=== PATIENT | male | born 1980 | race Caucasian/White ===

== ENCOUNTER → 2020-09-13 09:59 | Outpatient (REF) | payer OTHER, SELFPAY ==
--- NOTE | 2020-09-13 10:00 | CA_ITS ---
Transthoracic Echocardiogram Amended Patient (Last, First, Middle): Dipak Munoz, Gender: Male Date of : 1980 Age: 40 Procedure Date: 09/13/2020 Procedure Type: Transthoracic Echocardiogram Location: OP Height: 182.88 cm Weight: 117.94 kg BSA: 2.38 m2 Heart Rate: bpm BP: 100 / 62 mmHg Abnormal Psychology Teacher: Referring MD: Marciano Flannery MD Instrument Setter: Sreedhar Bustamante MD Symptoms: R94.31 ABNORMAL EKG Study Quality: Fair ECG Rhythm: Sinus Conclusions: - 1. Normal LV systolic and diastolic function 2. Normal cardiac valvular Doppler 3. No pericardial effusion Findings Left Ventricle Normal left ventricular size, thickness, and systolic function. The visually estimated ejection fraction is between 60-65%. Diastolic function is normal for age. Right Ventricle Normal right ventricular cavity size and systolic function. Atria Both atria are normal in size. There is lipomatous hypertrophy of the interatrial septum. There is no evidence of interatrial shunt. Aortic Valve Normal aortic valve structure and function. There is no aortic valve stenosis. There is no aortic valve regurgitation. Mitral Valve Normal mitral valve structure and function. There is trace mitral valve regurgitation. There is no mitral valve stenosis. Pulmonic Valve The pulmonic valve was not well visualized. Tricuspid Valve Likely normal tricuspid valve structure and function. Tricuspid regurgitation envelope is inadequate for calculation of right ventricular systolic pressure. Normal right atrial pressure. Great Vessels All visible segments of the aorta are normal in size. The pulmonary artery was not well visualized. Venous The inferior vena cava is normal in size and collapses greater than 50% with inspiration. Pericardium/Pleural There is no evidence of pericardial effusion. Prior Study Comparison No prior study available for comparison. Measurements 2D Linear Measurements RVIDd: 2.75 RVIDd Index: 1.16 IVSd: 1.01 0.6-0.9/0.6-1.0 cm LVIDd: 4.25 3.9-5.3/4.2-5.9 cm LVIDd Index: 1.79 2.4-3.2/2.2-3.1 cm/m2 LVIDs: 2.64 2.0-3.6 cm LVPWd: 1.24 0.7-1.1 cm Ao Root: 3.00 2.1-3.5 cm LA Diam: 3.60 2.7-3.8/3.0-4.0 cm LAIDs Index: 1.51 1.5-2.3 cm/m2 LV Mass: 205.77 67-162/88-224 g LV Mass Index: 86.46 43-95/49-115 g/m2 LVOT Diam: 2.00 3.0+(-)1.3 cm 2D Volumes LA Vol: 16.40 2D Systolic Function EF 4C: 46.60 >55% EF 2C: 73.80 >55% EF BiP: 64.60 >55% Mitral Valve MV Pk E: 0.66 MV PK A: 0.53 MV Decel Time: 166.00 E/A: 1.20 E'Lateral: 10.00 E'Medial: 6.31 E/E' Med: 10.40 E/E' Lat: 6.60 Aortic Valve AoV Pk Raul: 1.11 AoV Mn Raul: 0.80 AoV VTI: 0.21 AoV Pk Grad: 5.00 Aov Mn Grad: 3.00 IFTIKHAR Cont.VTI: 2.76 LVOT LVOT Pk Raul: 0.96 LVOT Mn Raul: 0.66 LVOT VTI: 0.19 LVOT Pk Grad: 4.00 LVOT Mn Grad: 2.00 LVOT Diam: 2.00 LVOT Area: 3.14 Diastolic Function MV Pk E: 0.66 MV Pk A: 0.53 E/A: 1.20 E'Medial: 6.31 E/E' Med: 10.40 E' Laterial: 10.00 E/E' Lat: 6.60 Tricuspid Valve RA Press: 3.00 Great Vessels Aorta Ao Root-2D: 3.00 2.0-3.7 cm Ao Asc: 2.80 2.1-3.4 cm Ao Arch: 2.60 Updated in Other Vendor System with Status of Final Sreedhar Bustamante MD electronically signed on 05/29/2023 12:46:17 PM with status of Final
== END ==
LOC: HO.CARD 09:59
PROVIDERS: Visit Provider Internal Medicine
DX: R94.31 Abnormal electrocardiogram [ECG] [EKG] (principal)
CPT/HCPCS: 93306

== ENCOUNTER 2022-11-29 15:17 | Outpatient (REF) | payer OTHER, SELFPAY ==
[2022-11-29 15:38] LABS: MANUAL DIFF FLAG NO
[2022-11-29 18:18] LABS: Alanine Aminotransferase 102 U/L (0-40); Albumin Level 4.3 g/dL (3.5-5.0); Alkaline Phosphatase 88 U/L (39-117); Anion Gap 12 (12-20); Aspartate Amino Transferase 50 U/L (5-37); Bilirubin Total 0.8 mg/dL (0.0-1.0); Blood Urea Nitrogen 10 mg/dL (9-16); Calcium 9.4 mg/dL (8.4-10.2); Carbon Dioxide 29 mmol/L (22-29); Chloride 103 mmol/L (96-108); Cholesterol 178 mg/dL; Estimated Glomerular Filt Rate > 60; Glucose Random 105 mg/dL (60-115); Potassium 4.4 mmol/L (3.3-5.1); Sodium 140 mmol/L (135-145); Total Protein 7.5 g/dL (6.5-8.0)
[2022-11-29 18:27] LABS: Basophils Absolute Auto 0.1 X10*3/uL (0.0-0.2); Basophils Percent Auto 0.7 % (0-2); Eosinophils Absolute Auto 0.1 X10*3/uL (0.0-0.4); Eosinophils Percent Auto 1.1 % (0-4); Hematocrit 49.7 % (42.0-52.0); Imm Gran Abs Auto 0.04 X10*3/uL (0.00-0.03); Imm Gran Pct Auto 0.5 % (0.0-0.4); Lymphocytes Absolute Auto 2.4 X10*3/uL (1.2-4.9); Lymphocytes Percent Auto 26.6 % (20-40); Mean Corpuscular HGB Conc 34.2 g/dl (31.0-36.0); Mean Corpuscular Volume 87.8 fL (80.0-98.0); Mean Platelet Volume 12.6 fL (9.4-12.4); Monocytes Absolute Auto 0.9 X10*3/uL (0.1-1.2); Monocytes Percent Auto 10.4 % (2-11); Neutrophils Absolute Auto 5.4 x10*3/uL (2.0-8.3); Neutrophils Percent Auto 60.7 % (45-73); Platelet Count 206 X10*3/uL (160-400); Red Blood Count 5.66 X10*6/uL (4.60-5.80); White Blood Count 8.9 X10*3/uL (4.8-10.8)
[2022-11-29 18:35] LABS: Free T4 (Free Thyroxine) 1.17 ng/dL (0.71-1.85); Thyroid Stimulating Hormone 3.09 uIU/mL (0.32-4.0)
== END 2022-11-29 15:18 | disposition home or self-care (01) ==
LOC: HO.LAB 15:17
PROVIDERS: PCP Internal Medicine; Visit Provider Internal Medicine
DX: R63.5 Abnormal weight gain (principal); M54.9 Dorsalgia, unspecified; I12.9 Hypertensive chronic kidney disease with stage 1 through stage 4 chronic kidney disease, or unspecified chronic kidney disease; N18.9 Chronic kidney disease, unspecified
CPT/HCPCS: 36415; 80053; 82465; 84439; 84443; 85025

== ENCOUNTER → 2022-12-05 14:01 | Outpatient (REF) | payer OTHER, SELFPAY | LOC: HO.SL 14:01 | PROVIDERS: PCP Internal Medicine; Visit Provider Internal Medicine | DX: R06.83 Snoring (principal); G47.9 Sleep disorder, unspecified | CPT/HCPCS: 95806 ==

== ENCOUNTER → 2023-01-22 13:24 | Outpatient (BNVA) | payer OTHER, SELFPAY | PROVIDERS: PCP Internal Medicine; Visit Provider Physician Assistant ==

== ENCOUNTER → 2023-01-30 13:46 | Outpatient (BNVA) | payer OTHER, SELFPAY | PROVIDERS: PCP Internal Medicine; Visit Provider Physician Assistant Surgical | DX: E66.01 Morbid (severe) obesity due to excess calories (principal); Z68.41 Body mass index [BMI] 40.0-44.9, adult | CPT/HCPCS: 99202 ==

== ENCOUNTER → 2023-03-04 12:43 | Outpatient (BNVA) | payer OTHER, SELFPAY | PROVIDERS: PCP Internal Medicine; Referring Provider Internal Medicine; Visit Provider Dietitian, Registered | DX: E66.01 Morbid (severe) obesity due to excess calories (principal); Z68.38 Body mass index [BMI] 38.0-38.9, adult; Z71.3 Dietary counseling and surveillance | CPT/HCPCS: 97802 ==

== ENCOUNTER → 2023-03-27 12:42 | Outpatient (BNVA) | payer OTHER, SELFPAY | PROVIDERS: PCP Internal Medicine; Visit Provider Physician Assistant Surgical | DX: E66.9 Obesity, unspecified (principal); Z68.37 Body mass index [BMI] 37.0-37.9, adult; M54.50 Low back pain, unspecified | CPT/HCPCS: 99212 ==

== ENCOUNTER 2023-04-04 11:45 | Emergency (ER) | payer OTHER, SELFPAY ==
--- NOTE | ~2023-04-04 | XR_ITS ---
EXAMINATION: XR CHEST CLINICAL INFORMATION: Substernal chest pain. COMPARISON: None available. TECHNIQUE: 2 views of the chest were obtained. FINDINGS: No significant abnormality is noted involving the heart, lungs, mediastinum, bony thorax or soft tissues. XR/XR chest 2V IMPRESSION: Unremarkable examination.
--- NOTE | 2023-04-04 11:51 | ECG_ITS ---
Test Reason : CHEST PAIN Blood Pressure : / mmHG Vent. Rate : 087 BPM Atrial Rate : 087 BPM P-R Int : 174 ms QRS Dur : 084 ms QT Int : 352 ms P-R-T Axes : 010 016 000 degrees QTc Int : 423 ms Normal sinus rhythm Inferior infarct , age undetermined Cannot rule out Anterior infarct , age undetermined Abnormal ECG No previous ECGs available Referred By: Generic ED Physician Electronically Signed By:KRISTEN GALLOWAY MD
[2023-04-04 11:53] VITALS: BP 126/78; PULSE 84; O2SAT 99
[2023-04-04 11:55] VITALS: BP 130/77; PULSE 87; RESP 16; TEMP 36.5; O2SAT 95; BMI 39.4
[2023-04-04 12:17] LABS: MANUAL DIFF FLAG NO
[2023-04-04 12:19] LABS: Basophils Percent Auto 0.5 % (0-2); Eosinophils Absolute Auto 0.1 X10*3/uL (0.0-0.4); Eosinophils Percent Auto 0.7 % (0-4); Hemoglobin 17.8 g/dl (14.0-18.0); Imm Gran Abs Auto 0.02 X10*3/uL (0.00-0.03); Imm Gran Pct Auto 0.2 % (0.0-0.4); Lymphocytes Absolute Auto 1.8 X10*3/uL (1.2-4.9); Lymphocytes Percent Auto 20.9 % (20-40); Mean Corpuscular HGB Conc 34.2 g/dl (31.0-36.0); Mean Corpuscular Hemoglobin 29.9 pg (27.0-33.0); Mean Corpuscular Volume 87.2 fL (80.0-98.0); Mean Platelet Volume 11.9 fL (9.4-12.4); Monocytes Absolute Auto 0.6 X10*3/uL (0.1-1.2); Monocytes Percent Auto 7.3 % (2-11); Neutrophils Absolute Auto 6.1 x10*3/uL (2.0-8.3); Neutrophils Percent Auto 70.4 % (45-73); Platelet Count 181 X10*3/uL (160-400); Red Blood Count 5.96 X10*6/uL (4.60-5.80); Red Cell Distribution Width 11.8 % (11.0-16.0); White Blood Count 8.6 X10*3/uL (4.8-10.8)
--- NOTE | 2023-04-04 12:29 | PC.NURSE ---
alert and oriented, resp even and unlabored. iv established, labs drawn and sent. pt resting comfortably on stretcher
[2023-04-04 12:47] LABS: Alanine Aminotransferase 83 U/L (0-40); Albumin Level 4.5 g/dL (3.5-5.0); Alkaline Phosphatase 92 U/L (39-117); Anion Gap 14 (12-20); Aspartate Amino Transferase 45 U/L (5-37); Bilirubin Total 1.2 mg/dL (0.0-1.0); Blood Urea Nitrogen 16 mg/dL (9-16); Calcium 10.2 mg/dL (8.4-10.2); Carbon Dioxide 26 mmol/L (22-29); Chloride 104 mmol/L (96-108); Creatinine Clr Calc Pharmacy 102.9; Estimated Glomerular Filt Rate > 60; Glucose Random 107 mg/dL (60-115); Potassium 4.3 mmol/L (3.3-5.1); Sodium 140 mmol/L (135-145); Total Protein 8.1 g/dL (6.5-8.0)
[2023-04-04 12:54] LABS: Troponin-I High Sensitivity 5.7 ng/L (<3.5-35.0)
[2023-04-04 14:51] VITALS: BP 97/52; PULSE 74; RESP 20; TEMP 36.4; O2SAT 95
--- NOTE | 2023-04-04 15:54 | ED.CHESTPAIN ---
HPI - Chest Pain General Chief Complaint: Chest Pain Stated Complaint: cp,dizzy per ems Time Seen by Provider: 04/04/23 14:03 Source: patient Mode of arrival: EMS Limitations: no limitations History of Present Illness HPI narrative: 43-year-old male with history of obesity, hypertension presents with chest pain. Chest pain was substernal. It did not radiate. Was associated with some mild nausea but no shortness of breath. Symptoms occurred at rest. They are not exacerbated by exertion. There were improved with oxygen by EMS. Patient describes the pain as heaviness. He has no history of cardiac abnormalities, no history his family of acute coronary . He does report father had some cardiac related issues in his 30s but was related to an extremely unhealthy lifestyle. Patient is currently asymptomatic. Related Data Home Medications Medication Instructions Recorded Confirmed ibuprofen 800 mg tablet 800 mg PO Q8H PRN 01/22/23 01/30/23 MEN ONE A DAY VITAMIN PO 01/30/23 01/30/23 Allergies Allergy/AdvReac Type Severity Reaction Status Date / Time No Known Allergies Allergy Verified 03/27/23 12:54 [No Known Allergies*] Review of Systems Review of Systems: CONSTITUTIONAL: Denies weight loss, fever and chills. HEENT: Denies changes in vision and hearing. RESPIRATORY: Denies SOB and cough. CV: Denies palpitations positive CP. GI: Denies abdominal pain, positive nausea, no vomiting and diarrhea. : Denies dysuria and urinary frequency. MSK: Denies myalgia and joint pain. SKIN: Denies rash and pruritus. NEUROLOGICAL: Denies headache and syncope. PSYCHIATRIC: Denies recent changes in mood. Denies anxiety and depression. All other ROS are negative unless in HPI PMFSH Past Medical History Surgical History History of ankle surgery Hx of removal of cyst Hx of wisdom tooth extraction Family History Family History Mother No problems noted. Father Heart disease Social History Social History Household Members: Spouse, Family and Children Alcohol intake: current Alcohol intake frequency: holidays/special occasions only Patient Tobacco Use Status: Never used Tobacco Substance Use Type: Marijuana Advance Directives: No Advance Directives Information Provided: Yes Physical Exam Vital Signs: Vital Signs: Last Vital Signs Temp 97.6 F 04/04/23 14:51 Pulse 74 04/04/23 14:51 Resp 20 04/04/23 14:51 BP 97/52 L 04/04/23 14:51 Pulse Ox 95 04/04/23 14:51 O2 Del Method Room Air 04/04/23 14:51 BMI result Body Mass Index 39.4 GEN: Well developed, no acute distress, alert, oriented HEENT: Normocephalic, atraumatic, normal external ears, nose appears normal, no oropharyngeal edema or exudates Eyes: Normal to appearance Neck: Supple, no lymphadenopathy Respiratory: Talks in complete sentences, no respiratory distress, clear to auscultation bilaterally Cardiovascular: Regular rate and rhythm, no murmurs rubs or gallops Abdomen: Soft, nontender, nondistended, no guarding, no rebound Back: No CVA tenderness Extremities: No clubbing cyanosis or edema Neurologic: No focal neurologic deficits, cranial nerves 2-12 intact, strength is 5/5 bilaterally Skin: No rash Course Course Course Narrative: 43-year-old male with history of obesity and hypertension presents with chest pain. The chest pain occurred at rest which is atypical. The did described as heaviness and substernal. Did not radiate. Was associated with nausea. Improved with oxygen administration examination is unremarkable. EKG did reveal some abnormalities including an T-wave inversion and a Q-wave in lead 3 and a Q-wave in AVF. This could certainly be due to body habitus in lead placement. There are no acute ST elevations or depressions. Patient's initial set of cardiac enzymes are negative. Will repeat a troponin. Given the atypical story of chest pain, no acute ST elevations or depressions, patient would likely be safely discharged with follow-up as an outpatient to Cardiology given the EKG abnormalities. Heart score was deemed low risk Reevaluation(s) Reevaluation #1: 2nd set of cardiac enzymes is negative. Patient can be safely discharged. All discharge instructions were discussed. All abnormalities were discussed. Time: 16:24 Medical Decision Making Medical Decision Making MDM Narrative: Patient presents with chest pain. Symptoms are suggestive of a noncardiac etiology. His history is without high risk features including the nonexertional component. It was not relieved with rest. His CAD risk factors include hypertension. His exam is without evidence of acute fluid overload. EKG does show some abnormalities but no acute active ischemia. His heart score was low risk. We will send 2 sets of cardiac enzymes given the timing. His cardiac enzymes are negative, patient can likely be discharged with outpatient follow-up given the abnormal EKG. His presentation is not consistent with acute pulmonary embolus, PERC score is negative, pneumothorax, thoracic aortic dissection, cardiac effusion or tamponade. Will also order an EKG, chest x-ray. There is no indication for aspirin. He is currently pain-free and does not require additional pain management Differential Diagnosis Differential Diagnoses: The differential diagnosis associated with the presentation includes (See above) Admission/Observation Consideration of admission/observation: Escalation of care including admission/observation considered Lab Data MDM Lab Attestation statement: I reviewed the patient's lab results. 04/04/23 12:13 04/04/23 12:13 Labs: Lab Results 04/04/23 04/04/23 04/04/23 Range/Units 12:13 12:13 12:13 WBC 8.6 (4.8-10.8) X10*3/uL RBC 5.96 H (4.60-5.80) X10*6/uL Hgb 17.8 (14.0-18.0) g/dl Hct 52.0 (42.0-52.0) % MCV 87.2 (80.0-98.0) fL MCH 29.9 (27.0-33.0) pg MCHC 34.2 (31.0-36.0) g/dl RDW 11.8 (11.0-16.0) % Plt Count 181 (160-400) X10*3/uL MPV 11.9 (9.4-12.4) fL Immature Gran % (Auto) 0.2 (0.0-0.4) % Neut % (Auto) 70.4 (45-73) % Lymph % (Auto) 20.9 (20-40) % [place] % (Auto) 7.3 (2-11) % Eos % (Auto) 0.7 (0-4) % Baso % (Auto) 0.5 (0-2) % Lymph # (Auto) 1.8 (1.2-4.9) X10*3/uL [place] # (Auto) 0.6 (0.1-1.2) X10*3/uL Eos # (Auto) 0.1 (0.0-0.4) X10*3/uL Baso # (Auto) 0.0 (0.0-0.2) X10*3/uL Abs Immat Gran (auto) 0.02 (0.00-0.03) X10*3/uL Absolute Neuts (auto) 6.1 (2.0-8.3) x10*3/uL Absolute Nucleated RBC 0.000 (0.0-0.012) X10*3/uL Nucleated RBC % (auto) 0.0 (0.0-0.2) /100WBC Sodium 140 (135-145) mmol/L Potassium 4.3 (3.3-5.1) mmol/L Chloride 104 (96-108) mmol/L Carbon Dioxide 26 (22-29) mmol/L Anion Gap 14 (12-20) BUN 16 (9-16) mg/dL Creatinine 1.20 (0.5-1.4) mg/dL Estim Creat Clear Calc 102.9 Estimated GFR > 60 Random Glucose 107 (60-115) mg/dL Calcium 10.2 D (8.4-10.2) mg/dL Total Bilirubin 1.2 H (0.0-1.0) mg/dL AST 45 H (5-37) U/L ALT 83 H (0-40) U/L Alkaline Phosphatase 92 (39-117) U/L Troponin I High Sens 5.7 (<3.5-35.0) ng/L Total Protein 8.1 H (6.5-8.0) g/dL Albumin 4.5 (3.5-5.0) g/dL 04/04/23 Range/Units 15:37 WBC (4.8-10.8) X10*3/uL RBC (4.60-5.80) X10*6/uL Hgb (14.0-18.0) g/dl Hct (42.0-52.0) % MCV (80.0-98.0) fL MCH (27.0-33.0) pg MCHC (31.0-36.0) g/dl RDW (11.0-16.0) % Plt Count (160-400) X10*3/uL MPV (9.4-12.4) fL Immature Gran % (Auto) (0.0-0.4) % Neut % (Auto) (45-73) % Lymph % (Auto) (20-40) % [place] % (Auto) (2-11) % Eos % (Auto) (0-4) % Baso % (Auto) (0-2) % Lymph # (Auto) (1.2-4.9) X10*3/uL [place] # (Auto) (0.1-1.2) X10*3/uL Eos # (Auto) (0.0-0.4) X10*3/uL Baso # (Auto) (0.0-0.2) X10*3/uL Abs Immat Gran (auto) (0.00-0.03) X10*3/uL Absolute Neuts (auto) (2.0-8.3) x10*3/uL Absolute Nucleated RBC (0.0-0.012) X10*3/uL Nucleated RBC % (auto) (0.0-0.2) /100WBC Sodium (135-145) mmol/L Potassium (3.3-5.1) mmol/L Chloride (96-108) mmol/L Carbon Dioxide (22-29) mmol/L Anion Gap (12-20) BUN (9-16) mg/dL Creatinine (0.5-1.4) mg/dL Estim Creat Clear Calc Estimated GFR Random Glucose (60-115) mg/dL Calcium (8.4-10.2) mg/dL Total Bilirubin (0.0-1.0) mg/dL AST (5-37) U/L ALT (0-40) U/L Alkaline Phosphatase (39-117) U/L Troponin I High Sens < 2.7 D (<3.5-35.0) ng/L Total Protein (6.5-8.0) g/dL Albumin (3.5-5.0) g/dL Independent Interpretation I performed an independent interpretation of an: EKG (Normal sinus rhythm heart rate 87, Q-waves noted in lead 3 and AVF, no acute ST elevations or depressions, poor precordial progression, no comparison) and Plain X-Ray (Chest: No acute cardiopulmonary disease) Independent Historian Clinical information obtained from an independent historian. History obtained from or confirmed by: Spouse Tests considered The following testing was considered but not selected: CT chest Prescription Management I considered prescription management with: Pain Medication Chronic Conditions Patient?s care impacted by: Hypertension Discharge Plan Discharge Clinical Impression: Chest pain, Abnormal ECG Patient Disposition: Home, Self-Care Instructions: Chest Pain (DC) Prescriptions: No Action ibuprofen 800 mg tablet 800 mg PO Q8H PRN MEN ONE A DAY VITAMIN PO Referrals: Sreedhar Bustamante MD [Physician] -
[2023-04-04 16:14] LABS: Troponin-I High Sensitivity < 2.7 ng/L (<3.5-35.0)
== END 2023-04-04 16:32 | disposition home or self-care (01) ==
PROVIDERS: Emergency Provider Emergency Medicine; PCP Internal Medicine
DX: R07.89 Other chest pain (principal); I10 Essential (primary) hypertension; R94.31 Abnormal electrocardiogram [ECG] [EKG]; R42 Dizziness and giddiness; Z79.899 Other long term (current) drug therapy
CPT/HCPCS: 36415; 71046; 80053; 84484; 85025; 93005; 99283; 99285

== ENCOUNTER 2023-04-10 11:11 | Outpatient (REF) | payer OTHER, SELFPAY ==
--- NOTE | ~2023-04-10 | XR_ITS ---
EXAMINATION: XR LUMBOSACRAL SPINE WITH OBLIQUES CLINICAL INFORMATION: Lower back pain. COMPARISON: None available. TECHNIQUE: AP and lateral views of the lumbar spine were obtained. Lateral views were obtained in flexion, extension, and neutral positions. FINDINGS: Vertebral body heights are normal. There is a mild lumbar dextroscoliosis. At L5-S1, there is moderate disc space narrowing and a 6 mm anterolisthesis. The remaining lumbar disc spaces are well-maintained. No acute fracture or spondylolisthesis is seen. There is no significant instability with flexion or extension. The posterior elements are intact. The paravertebral soft tissues are unremarkable. XR/XR lumbar spine 4V min IMPRESSION: 1. There is a mild lumbar dextroscoliosis. 2. There is moderate degenerative disc disease at L5-S1. 3. No significant instability is seen with flexion or extension..
== END 2023-04-10 11:12 | disposition home or self-care (01) ==
LOC: HO.HOSX 11:11
PROVIDERS: PCP Internal Medicine; Visit Provider Neurological Surgery
DX: M54.50 Low back pain, unspecified (principal); M41.9 Scoliosis, unspecified
CPT/HCPCS: 72110; 99202

== ENCOUNTER 2023-04-25 13:22 | Outpatient (REF) | payer OTHER, SELFPAY ==
[2023-04-25 14:31] LABS: Appearance Urine Clear; Color Urine Yellow; Glucose Urine UA Negative (Negative); Leukocyte Esterase Urine Negative (Negative); Nitrite Urine Negative (Negative); PH 6.5 (5.0-9.0); Specific Gravity - Urine 1.025 (1.005-1.025); Urine Blood Negative (Negative); Urine Ketones Negative (Negative); Urine Protein Negative (Neg-Trace)
[2023-04-25 14:57] LABS: D Dimer High Sensitivity < 150 NG/ML
[2023-04-25 16:05] LABS: C Reactive Protein 0.32 mg/dL (< or = 0.50)
== END 2023-04-25 13:23 | disposition home or self-care (01) ==
LOC: HO.LAB 13:22
PROVIDERS: PCP Internal Medicine; Visit Provider Internal Medicine
DX: R06.02 Shortness of breath (principal); R79.89 Other specified abnormal findings of blood chemistry
CPT/HCPCS: 36415; 81003; 82550; 85379; 86140

== ENCOUNTER → 2023-05-01 14:37 | Outpatient (REF) | payer OTHER, SELFPAY ==
--- NOTE | 2023-05-01 14:40 | CA_ITS ---
Transthoracic Echocardiogram Amended Patient (Last, First, Middle): Dipak Munoz, Gender: Male Date of : 1980 Age: 43 Procedure Date: 05/01/2023 Procedure Type: Transthoracic Echocardiogram Location: OP Height: 180.34 cm Weight: 115.67 kg BSA: 2.34 m2 Heart Rate: 73 bpm BP: 128 / 72 mmHg Income Tax Preparer: Referring MD: Marciano Flannery MD Cloth Layer: Sreedhar Bsutamante MD Symptoms: R06.02 SOB BORDERLINE EKG Study Quality: Adequate/Contrast ECG Rhythm: Sinus Conclusions: - 1. Normal LV systolic function with normal filling pattern 2. Normal cardiac valvular Doppler 3. No gross pericardial effusion - (study reported by but still in preliminary status for unclear reasons. Signed by me as he is on vacation and this report has been requested for a pending surgery). Findings Procedure Information Contrast agent, definity, is being given per protocol without apparent complications. Left Ventricle Normal left ventricular size, thickness, and systolic function. The visually estimated ejection fraction is between 60-65%. Spectral Doppler is indicative of a normal filling pattern. Right Ventricle Normal right ventricular cavity size and systolic function. Atria The left atrium is normal in size. Interatrial shunt cannot be excluded. The right atrium was not well visualized. Aortic Valve The aortic valve structure and function is likely normal. There is no aortic valve stenosis. There is no aortic valve regurgitation. Mitral Valve Likely normal mitral valve structure and function. There is trace mitral valve regurgitation. There is no mitral valve stenosis. Pulmonic Valve The pulmonic valve was not well visualized. Tricuspid Valve Likely normal tricuspid valve structure and function. Tricuspid regurgitation envelope is inadequate for calculation of right ventricular systolic pressure. Great Vessels All visible segments of the aorta are normal in size. The pulmonary artery was not well visualized. Venous The inferior vena cava is normal in size and collapses greater than 50% with inspiration. Pericardium/Pleural There is no evidence of pericardial effusion. Prior Study Comparison No significant change compared to prior study dated: 09/13/2020. Measurements 2D Linear Measurements IVSd: 1.23 0.6-0.9/0.6-1.0 cm LVIDd: 4.15 3.9-5.3/4.2-5.9 cm LVIDd Index: 1.77 2.4-3.2/2.2-3.1 cm/m2 LVIDs: 2.46 2.0-3.6 cm LVPWd: 1.20 0.7-1.1 cm Ao Root: 3.00 2.1-3.5 cm LA Diam: 3.70 2.7-3.8/3.0-4.0 cm LAIDs Index: 1.58 1.5-2.3 cm/m2 LV Mass: 221.95 67-162/88-224 g LV Mass Index: 94.85 43-95/49-115 g/m2 LVOT Diam: 2.30 3.0+(-)1.3 cm 2D Volumes LA Vol: 11.90 2D Systolic Function EF 4C: 59.90 >55% EF 2C: 59.00 >55% EF BiP: 60.30 >55% Mitral Valve MV Pk E: 0.59 MV PK A: 0.51 MV Decel Time: 203.00 E/A: 1.20 E'Lateral: 12.60 E'Medial: 10.80 E/E' Med: 5.50 E/E' Lat: 4.70 PHT: 59.00 MVA PHT: 3.73 Decel Navarro: 2.93 Aortic Valve AoV Pk Raul: 1.13 AoV Mn Raul: 0.71 AoV VTI: 0.22 AoV Pk Grad: 5.00 Aov Mn Grad: 2.00 IFTIKHAR Cont.VTI: 2.98 LVOT LVOT Pk Raul: 0.81 LVOT Mn Raul: 0.54 LVOT VTI: 0.16 LVOT Pk Grad: 3.00 LVOT Mn Grad: 1.00 LVOT Diam: 2.30 LVOT Area: 4.15 Diastolic Function MV Pk E: 0.59 MV Pk A: 0.51 E/A: 1.20 E'Medial: 10.80 E/E' Med: 5.50 E' Laterial: 12.60 E/E' Lat: 4.70 Right Ventricle TAPSE (mm): 20.30 TVS' Raul: 7.94 Tricuspid Valve TR Pk Raul: 1.56 TR Pk Grad: 10.00 Great Vessels Aorta Ao Root-2D: 3.00 2.0-3.7 cm Ao Asc: 3.00 2.1-3.4 cm Pulmonary Valve PV Pk Raul: 1.01 Peak PV Grad: 4.00 Updated in Other Vendor System with Status of Final Sreedhar Bustamante MD electronically signed on 09/03/2023 10:07:55 AM with status of Final
== END ==
LOC: HO.CARD 14:37
PROVIDERS: PCP Internal Medicine; Visit Provider Internal Medicine
DX: R06.02 Shortness of breath (principal)
CPT/HCPCS: 93306; Q9957

== ENCOUNTER 2023-05-02 19:44 | Outpatient (REF) | payer OTHER, SELFPAY | END 2023-05-02 19:45 | disposition home or self-care (01) | LOC: HO.MRI 19:44 | PROVIDERS: PCP Internal Medicine; Visit Provider Neurological Surgery | DX: M41.9 Scoliosis, unspecified (principal); M54.50 Low back pain, unspecified | CPT/HCPCS: 72148 ==

== ENCOUNTER 2023-05-13 11:38 | Outpatient (AMB) | payer OTHER, SELFPAY ==
--- NOTE | 2023-05-13 11:49 | MHC.OFFVISWM ---
Intake VS Expanded 05/13/23 11:54 Height 5 ft 10 in Weight 253 lb BMI 36.3 BP 128/81 Blood Pressure Location Rt brachial Blood Pressure Position Sitting Pulse 74 Pulse Source Pulse Oximeter Temp 97.2 F Temperature Source Temporal Artery Scan Pulse Oximetry 98 Oxygen Delivery Method Room Air Body Fat 85.4 Body Fat Percentage 33.7 Free Fat Mass 167.6 Muscle Mass 159.4 Visceral Mass 17.0 Water Mass 119.2 BMR 2,299 Intake Visit Reasons: [facility] follow up Education Department Chair Required: No Allergies No Known Allergies [No Known Allergies*] Allergy (Verified 05/13/23 11:55) Medication List - Last Reconciled 05/13/23 by MAHIN Ellis ibuprofen 800 mg PO Q8H PRN [MEN ONE A DAY VITAMIN PO] HPI HPI Comments History of Present Illness Details Returns for f/u of [facility] program Started 01/30/23-weight 285 pounds, BMI 40.89 Weight today 253 pounds, BMI 36.3 32 pound weight loss to date, 11.2 % TBWL Continues w chronic LBP with intermittent radiation to the front of the thighs bilaterally.?He feels as though he does recover quicker from a flair but it does continue. Energy, fitness, strength improved. Overall fells he is doing better. Feels as though his autism is better tolerated both socially and with the weather. Meal plan: 3 Pure protein shakes ([employer], [employer], [employer], [employer]) First shake, (1 scoop in 8 oz low fat unsweetened almond milk) at 1130am-130pm Second shake, (1/2 scoops in 8 oz low fat unsweetened almond milk) at? 230pm-430pm Dinner at 5pm (10 forks of protein and 10 forks of salad/vegetables). 1 protein bar ([employer] Perfect bars at [employer], [employer], or [employer]) at 7pm-9pm. Another shake (1/2 scoop in 8 oz unsweetened almond milk) at 10pm-12am. Exercise: yoga daily walking stationary bike at home-75-100 calories gym: weights then cardio (treadmill or bike) PFSH Surgical History History of ankle surgery Hx of removal of cyst Hx of wisdom tooth extraction Family History Mother No problems noted. Father Heart disease Social History Household Members: Spouse, Family and Children Alcohol intake: current Alcohol intake frequency: holidays/special occasions only Patient Tobacco Use Status: Never used Tobacco Substance Use Type: Marijuana Physical Exam Vital Signs: Last Vital Signs Temp 97.2 F 05/13/23 11:54 Pulse 74 05/13/23 11:54 BP 128/81 05/13/23 11:54 Pulse Ox 98 05/13/23 11:54 Oxygen Delivery Method Room Air 05/13/23 11:54 BMI result Body Mass Index 36.3 Const General: healthy appearing and no acute distress Resp Effort & Inspection: normal respiratory effort Auscultation: clear to auscultation bilaterally Cardio Rate: regular rate Rhythm: regular rhythm GI Auscultation: normal bowel sounds Extrem General: Yes normal to inspection Assessment & Plan Assessment & Plan (1) Obesity (BMI 30-39.9): Code(s): E66.9 - Obesity, unspecified Plan: Suggest decrease shakes to 1/2 scoop each. Continue exercise Discussed [employer] for access to pool. Has done very well with the program and will f/u as needed. Coding Level of Care Code Est Pt Level 3 (97190) Diagnoses Obesity (BMI 30-39.9) E66.9
[2023-05-13 11:54] VITALS: BP 128/81; PULSE 74; TEMP 36.2; O2SAT 98; BMI 36.3
== END 2023-05-13 12:23 | disposition home or self-care (01) ==
PROVIDERS: PCP Internal Medicine; Visit Provider Physician Assistant Surgical
DX: E66.9 Obesity, unspecified (principal); Z68.36 Body mass index [BMI] 36.0-36.9, adult
CPT/HCPCS: 99213

== ENCOUNTER → 2023-05-13 11:38 | Outpatient (BNVA) | payer OTHER, SELFPAY | PROVIDERS: PCP Internal Medicine; Visit Provider Physician Assistant Surgical | DX: E66.9 Obesity, unspecified (principal); Z68.36 Body mass index [BMI] 36.0-36.9, adult | CPT/HCPCS: 99212 ==

== ENCOUNTER 2023-07-16 14:46 | Outpatient (AMB) | payer OTHER, SELFPAY ==
--- NOTE | 2023-07-16 15:19 | A.SPINEOV_ITS ---
Intake Intake Visit Reasons: Discuss MRI results Intake Note: Mr. Munoz is here today to discuss the results of his MRI done @ [facility] [place]. 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 Please see Dr. Angel detailed note for the specifics of the problem. His MRI at [place] shows a very advanced degenerative disc at L5-S1. He has STIR endplate changes suggesting edema. While he has other milder degenerative changes I think that a lot of his pain could be explained by the bone on bone contact with the collapsed disc. Typically this is something Dr. Angel would offer him an L5- S1 anterior lumbar interbody fusion. We spent time at length discussing this possibility of surgery as well as risks benefits. Because of his age I did discuss the possibility of retrograde ejaculation. It is an extremely rare complication of an anterior approach and the patient understands that this is consideration of a risk, but he has done having children. I will review his imaging with Dr. Angel and get back to the patient with a final plan. Total amount of time spent in this visit was 20 minutes in discussion of symptoms, lumbar MRI imaging results and subsequent plan of care Rick Angel MD,PhD [facility] Coding Level of Care Code Est Pt Level 3 (76446) Diagnoses Lumbar scoliosis M41.9 Low back pain M54.50
== END 2023-07-16 15:59 | disposition home or self-care (01) ==
PROVIDERS: PCP Internal Medicine; Visit Provider Physician Assistant
DX: M41.9 Scoliosis, unspecified (principal); M54.50 Low back pain, unspecified
CPT/HCPCS: 99213

== ENCOUNTER → 2023-07-16 14:46 | Outpatient (BNVA) | payer OTHER, SELFPAY | PROVIDERS: PCP Internal Medicine; Visit Provider Physician Assistant | DX: M41.9 Scoliosis, unspecified (principal); M54.50 Low back pain, unspecified; M51.37 Other intervertebral disc degeneration, lumbosacral region | CPT/HCPCS: 99212 ==

== ENCOUNTER 2023-08-20 13:43 | Outpatient (AMB) | payer OTHER, SELFPAY ==
[2023-08-20 13:54] VITALS: BP 122/80; PULSE 82; BMI 35.7
--- NOTE | 2023-08-20 13:54 | A.OFFVIS_ITS ---
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 Patient himself does not have any known cardiac issues. No history of any coronary artery disease or myocardial infarction or cardiomyopathy or in fact anything cardiac sounding. No major comorbidities apart from weight. No premature CAD in family either. He has had some random chest pains in the past but nothing clearly exertional. Sounds rather nonspecific and musculoskeletal. He can walk up inclines, go up flights of stairs with no difficulty whatsoever. Has never had exertional angina or similar complaints. [facility] Medical History (Updated 08/20/23 @ 14:28 by Han Bhagat MD) DVT (deep venous thrombosis) Renal calculi Autism Low back pain Lumbar scoliosis HTN (hypertension) PTSD (post-traumatic stress disorder) Surgical History (Updated 08/16/23 @ 12:57 by Nicky Norton RN) Hx of lithotripsy Hx of removal of cyst History of ankle surgery Hx of wisdom tooth extraction Family History Mother No problems noted. Father Heart disease Social History Household Members: Spouse, Family and Children Are you a primary care support representative to a significant other at home: No Do you presently have visiting nurse or other home services: No Alcohol intake: current Alcohol intake frequency: holidays/special occasions only Patient Tobacco Use Status: Former Tobacco user Quit Date: 03/2020 Tobacco use type: Cigarette Substance Use Type: Marijuana Review of Systems Const Denies weakness ENT Denies dizziness Card Denies chest pain, Denies chest pain with activity, Denies syncope, Denies rapid heart rate, Denies pedal edema, Denies edema, Denies leg edema, Denies lightheadedness, Denies palpitations, Denies dyspnea, Denies dyspnea on exertion and Denies orthopnea Resp Denies cough, Denies dyspnea and Denies dyspnea on exertion GI Denies hematochezia and Denies change in stool character Musc Denies abnormal gait, Denies muscle cramps, Denies muscle weakness, Denies numbness, Denies radiating pain into limb and Denies tingling Neuro Denies abnormal gait, Denies dizziness, Denies syncope, Denies numbness, Denies tingling and Denies weakness Endo Denies palpitations Physical Exam Vital Signs: Last Vital Signs Pulse 82 08/20/23 13:54 BP 122/80 08/20/23 13:54 BMI result Body Mass Index 35.7 Const General: comfortable and no acute distress Orientation/consciousness: patient oriented x3 HEENT Other: Unremarkable Head: Yes normal to inspection Neck Neck: Yes normal visual inspection Chest Chest palpation & inspection: normal inspection of the chest Resp Auscultation: clear to auscultation bilaterally Cardio Palpation: normal PMI Heart sounds: S1 normal heart sound present, S2 normal heart sound present, no gallops, no murmurs and no rubs GI Palpation (GI): Soft to palpation Back/Spine/Pelvis Other: unremarkable Skin General skin exam: no rashes or lesions noted Neuro General: patient oriented x3 Extrem General: Yes normal to inspection Psych Mental Status: mental status grossly normal Assessment & Plan Assessment & Plan (1) Preoperative cardiovascular examination: Code(s): Z01.810 - Encounter for preprocedural cardiovascular examination (2) Abnormal ECG: Code(s): R94.31 - Abnormal electrocardiogram [ECG] [EKG] (3) Morbid obesity: Code(s): E66.01 - Morbid (severe) obesity due to excess calories (4) Lumbar scoliosis: Code(s): M41.9 - Scoliosis, unspecified Plan In the recent EKG, cannot exclude old inferior infarct or anterior infarct; ventricular rate 87/Min. Normal NC and corrected QT. Echocardiogram with preserved LVEF, 60-60%; no significant valvular findings and otherwise unremarkable. Available high sensitivity troponin levels are normal. Clinically, he does not have any exertional angina type symptoms at all. In fact has unrestricted physical activity apart from limitations from his back. EKG findings are most likely from his body habitus/weight. Rationale was discussed with patient in great detail. He understands. With regard to back surgery, may proceed as planned. Low cardiac risk. If any concerns in the future, can reassess. Coding Level of Care Code New Pt Level 4 (60357) Diagnoses Preoperative cardiovascular examination Z01.810 Abnormal ECG R94.31 Morbid obesity E66.01 Lumbar scoliosis M41.9
== END 2023-08-20 14:11 | disposition home or self-care (01) ==
PROVIDERS: PCP Internal Medicine; Visit Provider Internal Medicine
DX: Z01.810 Encounter for preprocedural cardiovascular examination (principal); R94.31 Abnormal electrocardiogram [ECG] [EKG]; E66.01 Morbid (severe) obesity due to excess calories; M41.9 Scoliosis, unspecified
CPT/HCPCS: 99204

== ENCOUNTER → 2023-08-20 13:43 | Outpatient (BNVA) | payer OTHER, SELFPAY | PROVIDERS: PCP Internal Medicine; Visit Provider Internal Medicine ==

== ENCOUNTER 2023-08-27 06:30 | Inpatient (IN) | payer OTHER, SELFPAY ==
[2023-08-16 13:01] VITALS: BP 123/79; PULSE 73; RESP 20; O2SAT 97; BMI 35.9
--- NOTE | 2023-08-16 13:28 | P.CONAN_ITS ---
Documented by User: Yessenai Wbeb NP 08/26/23 09:09 HPI - Anesthesia Eval Consult details Narrative: 43yo M for L5-S1 Ant Lumbar Interbody Fusion (poss OLIF), 08/27/23 [facility] ED 04/2023 with chest discomfort and abnormal EKG. Eval by [facility] cardiology Cardiac optimized No recent illness No CP/SOB since ER DVT 2018. [facility] Active Problems Active Problems: All Active Problems (Updated 08/16/23 @ 12:58 by Nicky Norton RN) Lumbar scoliosis (Acute) Obesity (BMI 30-39.9) (Acute) Low back pain (Acute) Autism (Acute) PTSD (post-traumatic stress disorder) (Acute) HTN (hypertension) (Acute) Morbid obesity (Acute) Past Medical History Medical History (Updated 08/20/23 @ 14:28 by Han Bhagat MD) DVT (deep venous thrombosis) Renal calculi Autism Low back pain Lumbar scoliosis HTN (hypertension) PTSD (post-traumatic stress disorder) Family History Family History Mother No problems noted. Father Heart disease Family history of problems with anesthesia: No Surgical History Surgical History (Updated 08/16/23 @ 12:57 by Nicky Norton RN) Hx of lithotripsy Hx of removal of cyst History of ankle surgery Hx of wisdom tooth extraction History of Problems with Anesthesia: No (hyper sensory with Autism) Social History Social History Household Members: Spouse Housing: House Are you a primary career based intervention coordinator to a significant other at home: No Do you presently have visiting nurse or other home services: No Alcohol intake: current Alcohol intake frequency: holidays/special occasions only Patient Tobacco Use Status: Former Tobacco user Quit Date: 03/2020 Tobacco use type: Cigarette Use of substances other than those prescribed or required for medical reasons: Yes Substance Use Type: Marijuana Substance Use Type Other:: THC gummies Substance Use Frequency: Chronic Longstanding Have you been hit, kicked, punched, or otherwise hurt by someone within the past year? If so, by whom?: No Do you feel safe in your current relationship?: Yes Is there a partner from a previous relationship who is making you feel unsafe now?: No Are you DNR?: No Advance Directives: No (states fiance is primary contact) Advance Directives Information Provided: Yes (brochure given) Advance Directives on File: No Do you have thoughts of harming others: None Do you have a plan to hurt others: No Plan Recently lost weight without trying: No Eating poorly because of decreased appetite: No Nutrition Risks: No Nutritional Risk Poor oral hygiene: No Meds Allergies Allergy/AdvReac Type Severity Reaction Status Date / Time No Known Allergies Allergy Verified 08/20/23 13:56 [No Known Allergies*] Home Medications Medication Instructions Recorded Confirmed Last Taken Type ibuprofen 800 mg tablet 800 mg PO Q8H PRN Pain 01/22/23 08/20/23 Unknown History Exam Exam Date and Time: August 16, 2023 1328 Height,Weight and Vital Signs: Height 5 ft 10 in Weight 113.398 kg Last Vital Signs Pulse 73 08/16/23 13:01 Resp 20 08/16/23 13:01 BP 123/79 08/16/23 13:01 Pulse Ox 97 08/16/23 13:01 O2 Del Method Room Air 08/16/23 13:01 Pertinent Lab Results Pertinent Lab Results: Laboratory Tests 04/04/23 12:13 WBC 8.6 Hgb 17.8 Hct 52.0 Plt Count 181 Sodium 140 Potassium 4.3 Chloride 104 Carbon Dioxide 26 BUN 16 Creatinine 1.20 Lab Results 08/16/23 Range/Units 14:50 Blood Type A Negative Antibody Screen NEGATIVE Narrative Narrative: Per 08/20/23 cardiac note: Echocardiogram with preserved LVEF, 60-60%; no significant valvular findings and otherwise unremarkable. Available high sensitivity troponin levels are normal. Clinically, he does not have any exertional angina type symptoms at all. In f act has unrestricted physical activity apart from limitations from his back. EKG findings are most likely from his body habitus/weight. Airway Mallampati Class: IV TM Dist: >3cm Neck ROM: Full Loose/Missing/Broken Teeth: Yes (Molars pulled) Heart: RRR Lungs: CTAB Assessment and Plan Assessment Anesthesia Assessment: Anesthesia Plan Discussed and PAT Visit Final Anesthetic Review Family History of Problems with Anesthesia: No History of Problems with Anesthesia: No (hyper sensory with Autism) Documented by User: Akshat Jensen MD 08/27/23 17:19 [facility] Past Medical History Medical History (Updated 08/20/23 @ 14:28 by Han Bhagat MD) DVT (deep venous thrombosis) Renal calculi Autism Low back pain Lumbar scoliosis HTN (hypertension) PTSD (post-traumatic stress disorder) Functional capacity: independent ambulation Family History Family History Mother No problems noted. Father Heart disease Surgical History Surgical History (Updated 08/16/23 @ 12:57 by Nicky Norton RN) Hx of lithotripsy Hx of removal of cyst History of ankle surgery Hx of wisdom tooth extraction Social History Social History Household Members: Spouse Housing: House Are you a primary career based intervention coordinator to a significant other at home: No Do you presently have visiting nurse or other home services: No Alcohol intake: current Alcohol intake frequency: holidays/special occasions only Patient Tobacco Use Status: Former Tobacco user Quit Date: 03/2020 Tobacco use type: Cigarette Use of substances other than those prescribed or required for medical reasons: Yes Substance Use Type: Marijuana Substance Use Type Other:: THC gummies Substance Use Frequency: Chronic Longstanding Have you been hit, kicked, punched, or otherwise hurt by someone within the past year? If so, by whom?: No Do you feel safe in your current relationship?: Yes Is there a partner from a previous relationship who is making you feel unsafe now?: No Are you DNR?: No Advance Directives: No (states fiance is primary contact) Advance Directives Information Provided: Yes (brochure given) Advance Directives on File: No Do you have thoughts of harming others: None Do you have a plan to hurt others: No Plan Recently lost weight without trying: No Eating poorly because of decreased appetite: No Nutrition Risks: No Nutritional Risk Poor oral hygiene: No Meds Allergies Allergy/AdvReac Type Severity Reaction Status Date / Time No Known Allergies Allergy Verified 08/20/23 13:56 [No Known Allergies*] Home Medications Medication Instructions Recorded Confirmed Last Taken Type ibuprofen 800 mg tablet 800 mg PO Q8H PRN Pain 01/22/23 08/20/23 Unknown History Assessment and Plan Assessment Anesthesia Assessment: Chart Reviewed Final Anesthetic Review NPO: Yes ASA Class: III Final Preanesthetic Review: Meds/Allgs Chart Reviewed, Consent Obtained/Reviewed and Anes Risks/Benef Reviewed Patient Risk: Intermediate Procedure Risk: Intermediate Anesthetic Plan Anesthetic Plan: GA and Agree w/ Assess. and Plan Disposition: Standard PACU
[2023-08-27] VITALS (28 sets, daily range): BP systolic 103–138; BP diastolic 63–94; PULSE 62–83; RESP 12–20; TEMP 36–36.7; O2SAT 96–99; BMI 35.7
--- NOTE | ~2023-08-27 | XR_ITS ---
EXAMINATION: XR LUMBOSACRAL SPINE CLINICAL INFORMATION: L5-S1 anterior lumbar interbody fusion, portable postop COMPARISON: MR lumbar spine 05/02/2023. X-ray lumbar spine 04/10/2023. TECHNIQUE: AP portable postop view of the lower lumbar spine. Additional imaging would need to be obtained to include the mid to upper lumbar spine. FINDINGS: Postsurgical change with hardware at L5-S1 status post lumbar interbody fusion. Surgical clip overlies the sacrum. XR/XR lumbar spine 1V IMPRESSION: Postsurgical change with hardware at L5-S1 status post lumbar interbody fusion.
--- NOTE | ~2023-08-27 | FL_ITS ---
EXAMINATION: XR FLUOROSCOPY WITH IMAGES CLINICAL INFORMATION: L5-S1 anterior lumbar interbody fusion. COMPARISON: Lumbar spine MRI April 2023 TECHNIQUE: Fluoroscopy Supervised By: Dr. Kenn Angel. Fluoroscopy Time: 27.5 seconds. Cumulative Dose: 61.493 mGy. DAP: 19.745 Gycm2. Images: 2. FINDINGS: There is new new anterior lumbar interval body hardware at L5-S1. FL/FL guidance in OR IMPRESSION: Fluoroscopy guidance for pain management procedure.
[2023-08-27] MEDS: Gabapentin 300 MG CAPSULE PO (06:31)
[2023-08-27] MEDS: Lactated Ringers 1,000 ML 100 ML IVCONT (06:33)
[2023-08-27] MEDS: methocarbamoL 750 MG TABLET PO (06:33)
--- NOTE | 2023-08-27 06:51 | PHA.MEDREC ---
Pharmacy Consult ? Medication Reconciliation Pharmacy has completed the medication reconciliation. Reviewed med rec done by nursing
--- NOTE | 2023-08-27 06:59 | MHC.SHP ---
Pre-Procedural Eval Section A Date of Service: 08/27/23 Section B Chief Complaint: S/P L5-S1 lumbar fusion Allergies: Allergies Allergy/AdvReac Type Severity Reaction Status Date / Time No Known Allergies Allergy Verified 08/20/23 13:56 [No Known Allergies*] Review of Systems Sugical H&P ROS: Negative: Constitution, Cardiovascular, Respiratory, Neurological, Psychiatric, Hem-Onc, Allergic/Immunologic, Gastrointestinal, Genitourinary, Musculoskeletal, Integumentary, Endocrine and Eyes/Ears/Nose/Throat Exam Surgical H&P Exam: Not Evaluated: HEENT, Not Evaluated: Heart, Not Evaluated: Lungs, Not Evaluated: Extremities, Not Evaluated: Abdomen, Not Evaluated: Skin and Not Evaluated: Neurological Plan Diagnosis/Plan: Unchanged I have reviewed the history and physical and performed a pertinent physical examination on my patient. No changes have occurred unless specified. Plan remains the same, L5-S1 ALIF. Time Spent With Patient Time: Total time managing care of this patient today _10___ minutes.
--- NOTE | 2023-08-27 09:58 | P.OP_ITS ---
Operative Note Operative Note Date of Service: 08/27/23 Narrative: Patient was evaluated by Dr. Angel for chronic lower back pain and radiculopathy and scheduled for ALIF L5-S1. I met with the patient pre- operatively and discussed the access part of the procedure and risks an the patient agreed to proceed. He was brought to the operating room and general anaesthesia was administered without incident. Abdomen was prepped sterily and draped. Timeout was done. 6 cm infra-umbilical vertical incision was done and it was brought down to the anterior rectus sheaththrough the thick layer of subcutaneous fat. Rectus sheath was opened vertically and left rectus muscle was mobilized. Left inferior epigastric vessels were protected. Spermatic cord was dissected and protected ant retro-peritoneal plane was developed. Left ureter was visualized and protected. Bookwalter retractor was placed. Dissection was carried at the medial aspect of the the left common iliac vein which was mobilized from the spine and middle sacral vessels were divided, Bipolar electrocautery was used to completely free L5-S1 disc anteriorly. Care was taken to stay immidiately on the surface of the spine to avoid nerve injury.Midline was marked with X-ray imaging. Doctor Angel then proceeded with diskectomy and cage fusion.Hemostasis was checked and was excellent. Gelfoam sponge was placed over the disc space. Ureter was intact and there was a good iliac pulse. Incision was injected with diluted Lidocaine/Marcaine mixture and closed by layers using O-Maxone on the fascia and absorbable subcutaneous and subcuticular closure. Exofin glue and steri-strip were applied. EBL: less then 10ml Complication:none
[2023-08-27] MEDS: HYDROmorphone HCl 0.5 MG/0.5 ML SYRINGE 0.25 MG IVPUSH ×4 (10:37→11:54)
--- NOTE | 2023-08-27 10:39 | P.OP_ITS ---
Operative Note Operative Note Date of Service: 08/27/23 Narrative: Preoperative Diagnosis: 1.) Lumbar degenerative disc disease L5-S1; lumbar radiculopathy and back pain Procedure: L5-S1 discectomy, arthrodesis and implantation cage through an anterior lumbar approach (ALIF) ; anterior instrumentation L5-S1; allograft Indication for Surgery Lumbar degenerative disc disease Consent Informed Consent was obtained for this operation. I have explained the nature, purpose and benefits of the operation. I have discussed the risks and benefit of the operation including possible complications or adverse events with patient/family. Alternative(s) were discussed with the patient with their relative benefits and risks as well as the consequences of not accepting the operation were included in obtaining consent. Surgeon: JERRY DIAZ MD, PHD Procedure Assisted By: NICHOLE HERBERT MD and MAHIN Brandon Description of Procedure This 43-year-old patient is suffer from intractable low back pain due to severe degenerative disc disease L5-S1. The patient was offered an anterior lumbar interbody fusion with anterior L5-S1 instrumentation. The procedure complications were explained. The patient was consented. The patient was brought to the operating room and endotracheally intubated. The patient was put in a supine position. Prep and drape was done followed by timeout. Dr. Herbert, co- surgeon, provided the access to the L5-S1 disc space through an anterior approach. He was assisted by physician assistant department manager who performed manual retraction. He will dictate the approach in a separate operative note. When the L5-S1 disc space was exposed I took over the procedure. An annulotomy was done followed by a partial discectomy. Sequential trial implants were inserted and advanced towards the posterior wall of the disc space. I completed the discectomy and prepare the endplates. Then a 27 x 40 x 14 and 12 degree lordosis 4 web cage filled with allograft was inserted into the disc space. Anterior instrumentation was added to secure the implant. Two screws with the length 27 mm were inserted into the L5 vertebral body and 1 screw 27 mm long was inserted into the S1 vertebral body as anterior instrumentation. The retractor was removed and hemostasis was done by Dr. Sheehan who closed the incision. All sponge and needle counts were correct. The patient was extubated and transported in stable condition to recovery room. The physician assistant department manager was critical for the following aspects of surgery : Exposure and closure of the incision. Anesthesia: General Estimated Blood Loss (ml): 30 mL Duration of Surgery: 90 minutes Complications: None Postoperative Plan: Admit to inpatient for observation
[2023-08-27] MEDS: ceFAZolin Sodium/Dextrose,Iso 2 GM/50 ML PIGGYBACK IV ×2 (14:09→20:21)
[2023-08-27] MEDS: Ketorolac Tromethamine 15 MG/ML VIAL IVPUSH ×2 (16:16→22:01)
[2023-08-27] MEDS: Acetaminophen 1,000 MG/100 ML PIGGYBACK 400 MG IV ×2 (16:17→23:01)
[2023-08-27] MEDS: oxyCODONE HCl Immed Release 5 MG TABLET PO ×2 (18:39→23:00)
[2023-08-27] MEDS: 0.9 % Sodium Chloride 1,000 ML 75 ML IVCONT (19:45)
[2023-08-27] MEDS: Docusate Sodium 100 MG CAPSULE PO (20:20)
[2023-08-28] MEDS: ceFAZolin Sodium/Dextrose,Iso 2 GM/50 ML PIGGYBACK IV (02:16)
[2023-08-28 02:21] VITALS: BP 105/64; PULSE 68; RESP 18; TEMP 36.3; O2SAT 98
[2023-08-28] MEDS: Acetaminophen 1,000 MG/100 ML PIGGYBACK 400 MG IV (03:52)
[2023-08-28] MEDS: Ketorolac Tromethamine 15 MG/ML VIAL IVPUSH (03:59)
[2023-08-28] MEDS: oxyCODONE HCl Immed Release 5 MG TABLET PO (04:45)
[2023-08-28 07:28] VITALS: BP 119/59; PULSE 59; RESP 18; TEMP 36.1; O2SAT 98
[2023-08-28] MEDS: Docusate Sodium 100 MG CAPSULE PO (08:06)
--- NOTE | 2023-08-28 09:19 | P.DS_ITS ---
DS: Providers Provider Date of Service: 08/28/23 Date of admission: 08/27/23 06:30 Primary care physician: Marciano Flannery MD DS: Summary Time Spent with Patient Time attestation: Total time managing care of this patient today ____ minutes. Discharge coordination time: Less than 30 minutes Quality: Safe Use of Opioids Does Pt have an Active Cancer Diagnosis on the Problem List?: No Quality: Stroke Does the patient have a stroke diagnosis?: No Physical Exam Vital Signs: Vital Signs: Last Vital Signs Temp 96.9 F 08/28/23 07:28 Pulse 59 08/28/23 07:28 Resp 18 08/28/23 07:28 BP 119/59 L 08/28/23 07:28 Pulse Ox 98 08/28/23 07:28 O2 Del Method Room Air 08/28/23 07:28 O2 Flow Rate 3 08/27/23 13:18 BMI result Body Mass Index 35.7 Discharge Plan Discharge Anticipated Discharge Date/Time: 08/28/23 09:20 Patient Disposition: Home, Self-Care Discharge Diagnosis: S/P L5-S1 ALIF Referrals: Marciano Flannery MD [Primary Care Provider] - Discharge Medications: New oxycodone 5 mg tablet 5 mg PO Q6H PRN (Reason: severe pain (scale score 7-10)) Qty: 24 0RF Rx Instructions: Partial Fill upon patient request. acetaminophen 500 mg tablet 1,000 mg PO Q8H PRN (Reason: mild-moderate pain ) Qty: 42 1RF docusate sodium 100 mg capsule 100 mg PO BID PRN (Reason: constipation) Qty: 20 0RF Continued ibuprofen 800 mg tablet 800 mg PO Q8H PRN (Reason: Pain) Discharge Orders: Discharge Order (Routine); Ordered 08/28/23 Ordered By: Mario Marie Diet: Advance to usual diet Activity on Discharge: As tolerated Stand Alone Forms: Patient Portal Discharge page Care Plan Goals: Return to activity as tolerated. Health Concerns: None. Plan of Treatment: Follow-up in outpatient office in 2-3 weeks. Assessment: Dipak is a pleasant 43-year-old male who is s/p L5-S1 ALIF. He is POD 1. His postoperative course has been uncomplicated. He has good tolerance of pain in good control with pain medications. He is up out of bed walking around. He has been able to void well, tolerating diet, and reports no significant concerns or issues at this time. He was seen at bedside this morning accompanied by his fiance' who asked several questions regarding home care. They were educated on postoperative course, and informed that they would receive discharge instructions alongside discharge paperwork. He is medically cleared to be discharged home. On exam he has full strength in his upper and lower extremities and no neurological deficits. Incision site is clean dry and well healing with no signs of drainage. Mario Angel MD,PhD [facility]
--- NOTE | 2023-08-28 13:09 | HO.POSTANES ---
Post Anesthesia Evaluation Post Anesthesia Evaluation Date of Service: 08/28/23 Vital Signs: Vital Signs Temp Pulse Resp BP Pulse Ox O2 Del Method 08/28/23 07:28 96.9 F 59 18 119/59 L 98 Room Air 08/28/23 02:21 97.4 F 68 18 105/64 98 Room Air Anesthesia: General Endotracheal-GETA Mental Status: Awake Pain Control: Satisfactory Nausea/Vomiting: None Hydration: Adequate Anesthesia-Related Issues: No Anes. Related Issues
== END 2023-08-28 09:52 | disposition home or self-care (01) | DRG 304 ==
LOC: HO.SSSA 10:02 → HO.S3 13:00
PROVIDERS: Absent Provider Physician Assistant; Admitting Provider Physician Assistant; PCP Internal Medicine; Visit Provider Neurological Surgery
PROC: 0SG30A0 Fusion of Lumbosacral Joint with Interbody Fusion Device, Anterior Approach, Anterior Column, Open Approach (ICD-10-PCS; principal; 2023-08-27 07:30)
DX: M51.06 Intervertebral disc disorders with myelopathy, lumbar region (principal); F43.10 Post-traumatic stress disorder, unspecified; M51.16 Intervertebral disc disorders with radiculopathy, lumbar region; I10 Essential (primary) hypertension; F84.0 Autistic disorder; Z23 Encounter for immunization; Z87.891 Personal history of nicotine dependence; Z79.899 Other long term (current) drug therapy
CPT/HCPCS: 72020; 86850; 86900; 86901; 90686; 97161; C1713; J0131; J0690; J1100; J1170; J1885; J2250; J2405; J3010; L8699

== ENCOUNTER → 2023-08-27 06:30 | Outpatient (BNV) | payer OTHER, SELFPAY | PROVIDERS: Absent Provider Physician Assistant; Admitting Provider Physician Assistant; PCP Internal Medicine; Visit Provider Surgery | DX: M47.9 Spondylosis, unspecified (principal); M54.50 Low back pain, unspecified | CPT/HCPCS: 20930; 22558; 22845; 22853; 99499 ==

== ENCOUNTER 2023-09-18 13:03 | Outpatient (AMB) | payer OTHER, SELFPAY ==
--- NOTE | 2023-09-18 13:17 | MHC.OFFVIS ---
Intake Intake Visit Reasons: 1st post op Intake Note: pt here for his 1st post op Allergies No Known Allergies [No Known Allergies*] Allergy (Verified 08/20/23 13:56) [facility] Medical History (Updated 08/20/23 @ 14:28 by Han Bhagat MD) DVT (deep venous thrombosis) Renal calculi Autism Low back pain Lumbar scoliosis HTN (hypertension) PTSD (post-traumatic stress disorder) Surgical History (Updated 09/18/23 @ 13:28 by MAHIN Brandon) Hx of lithotripsy Hx of removal of cyst History of ankle surgery Hx of wisdom tooth extraction Family History Mother No problems noted. Father Heart disease Social History Household Members: Spouse Housing: House Are you a primary lawn care technician to a significant other at home: No Do you presently have visiting nurse or other home services: No Alcohol intake: current Alcohol intake frequency: holidays/special occasions only Patient Tobacco Use Status: Former Tobacco user Quit Date: 03/2020 Tobacco use type: Cigarette Substance Use Type: Marijuana Assessment & Plan Assessment & Plan (1) S/P spinal fusion: Code(s): Z98.1 - Arthrodesis status Plan Procedure: L5-S1 MAMTA Quesada comes in today for his 1st postoperative visit. He reports he is very satisfied with the surgery and feels much better than he did pre-operatively. The patient reports he is up walking around and completing the majority of his ADLs. He reports that he no longer suffers from his severe low back pain. He feels his pain is manageable and he is finally beginning to return to regular activity. He required about riding his stationary bicycle at home which he was informed he is able to do as long as he is careful and realistic with himself as to what he can sustain at this time. No neurological deficits. Patient is able to ambulate well, rises from a seated position without difficulty. Incision sites are closed, well healing, with no signs of drainage. We will follow-up with the patient in 6 weeks for his 2nd postoperative visit. At that time we will get x-rays to review with the patient. Mario Angel MD,PhD [facility] Coding Level of Care Code Global (54657) Diagnoses S/P spinal fusion Z98.1
== END 2023-09-18 13:30 | disposition home or self-care (01) ==
PROVIDERS: PCP Internal Medicine; Visit Provider Physician Assistant
DX: Z98.1 Arthrodesis status (principal)
CPT/HCPCS: 99024

== ENCOUNTER → 2023-09-18 13:03 | Outpatient (BNVA) | payer OTHER, SELFPAY | PROVIDERS: PCP Internal Medicine; Visit Provider Physician Assistant ==

== ENCOUNTER 2023-10-31 13:32 | Outpatient (REF) | payer OTHER, SELFPAY | END 2023-10-31 13:33 | disposition home or self-care (01) | LOC: HO.HOSX 13:32 | PROVIDERS: Visit Provider Physician Assistant | DX: Z13.89 Encounter for screening for other disorder (principal) ==

== ENCOUNTER 2023-11-01 13:52 | Outpatient (AMB) | payer OTHER, SELFPAY ==
--- NOTE | 2023-11-01 14:05 | A.SPINEOV_ITS ---
Intake Intake Visit Reasons: 2nd post op with Xrays Intake Note: Mr. Munoz is here today for his 2nd post-op visit. Patient Care Coordinator Required: No Allergies No Known Allergies [No Known Allergies*] Allergy (Verified 08/20/23 13:56) Assessment & Plan Assessment & Plan (1) S/P spinal fusion: Code(s): Z98.1 - Arthrodesis status Plan Procedure: L5-S1 MAMTA Quesada comes in today for his 2nd post-operative visit. He reports that he continues to feel well, and states that his legs has not felt this good since he was in his 20s. He does state that he had recent confounding issues of a left- sided gout flare up and a left-sided Achilles tendinitis. Both have recently resolved, so he is going to begin attempting to do light cardiovascular/weight- bearing exercise. We discussed how to go about doing this in incremental way they does not re-injure himself. No neurological deficits. Patient is able to ambulate well, rises from a seated position without difficulty. Incision sites are closed, well healing, with no signs of drainage. No need to routinely follow up with Dipak at this time. He continues to do well and may follow-up on as-needed basis. Mario Angel MD,PhD [facility] Orders: Orders XR lumbar spine 4V min Today Z98.1 - Arthrodesis status Coding Level of Care Code Global (81374) Diagnoses S/P spinal fusion Z98.1
== END 2023-11-01 14:43 | disposition home or self-care (01) ==
PROVIDERS: PCP Internal Medicine; Visit Provider Physician Assistant
DX: Z98.1 Arthrodesis status (principal)
CPT/HCPCS: 99024

== ENCOUNTER → 2023-11-01 13:52 | Outpatient (BNVA) | payer OTHER, SELFPAY | PROVIDERS: PCP Internal Medicine; Visit Provider Physician Assistant | DX: Z98.1 Arthrodesis status (principal) ==

== ENCOUNTER 2023-11-01 13:53 | Outpatient (REF) | payer OTHER, SELFPAY | END 2023-11-01 13:54 | disposition home or self-care (01) | LOC: HO.HOSX 13:53 | PROVIDERS: Visit Provider Physician Assistant | DX: Z47.89 Encounter for other orthopedic aftercare (principal); Z98.1 Arthrodesis status | CPT/HCPCS: 72110; 99212 ==

== ENCOUNTER 2024-09-14 10:45 | Outpatient (AMB) | payer OTHER, SELFPAY ==
--- NOTE | 2024-09-14 11:06 | MHC.OFFVIS ---
Intake Visit Reasons: vasectomy consult Intake Note: Patient is present for VASECTOMY CONSULT Urology Medication:NONE Antibiotic Allergy:NONE Blood Thinner:NONE [employer] Equipment Repairer Required: No Allergies No Known Allergies [No Known Allergies*] Allergy (Verified 09/14/24 11:07) HPI Comments Details: Dipak is here for consultation for bilateral vasectomy. Vasectomy procedure was discussed at length with the patient. He was informed that vasectomy is a safe, permanent, and effective form of control but there are risks involved. It may involve risk of hematoma, procedure failure which is rare, sperm granuloma which may cause mild pain, and congestion which may cause sense of pressure and generally resolves after several weeks. Also discussed is the reported post vasectomy pain syndrome with chronic testicular pain which is uncommon <5% The patient was advised that it is necessary to use other types of control methods for > 12 weeks and until we send semen for analysis to make sure there is no more sperm in the semen. [facility] Medical History (Updated 10/11/24 @ 11:38 by Paula Pugh MD) DVT (deep venous thrombosis) Renal calculi Autism Low back pain Lumbar scoliosis HTN (hypertension) PTSD (post-traumatic stress disorder) Surgical History (Updated 09/18/23 @ 13:28 by MAHIN Brandon) Hx of lithotripsy Hx of removal of cyst History of ankle surgery Hx of wisdom tooth extraction Family History Mother No problems noted. Father Heart disease Social History Household Members: Spouse Housing: House Are you a primary healthcare advisory services manager to a significant other at home: No Do you presently have visiting nurse or other home services: No Alcohol intake: current Alcohol intake frequency: holidays/special occasions only Patient Tobacco Use Status: Former Tobacco user Tobacco use type: Cigarette Substance Use Type: Marijuana Review of Systems Const All systems reviewed & are unremarkable except as noted in HPI and below Reports no additional complaints Eyes Reports no additional complaints ENT Reports no additional complaints Card Reports no additional complaints Resp Reports no additional complaints GI Reports no additional complaints Reports as per HPI Musc Reports no additional complaints Skin/Breast Reports system reviewed and no additional complaints, except as documented Neuro Reports no additional complaints Psych Reports no additional complaints Endo Reports no additional complaints Luke/Lymph Reports no additional complaints Aller/Immun Reports no additional complaints Physical Exam Const General: healthy appearing, no acute distress and well developed Orientation/consciousness: patient oriented x3 HEENT Head: Yes normocephalic and Yes atraumatic Eyes Conjunctivae: conjunctivae normal Neck Neck: Yes normal visual inspection Chest Chest palpation & inspection: normal inspection of the chest Resp Effort & Inspection: normal respiratory effort Cardio Rate: regular rate GI Inspection: Yes normal to inspection Skin General skin exam: no rashes or lesions noted Neuro General: patient oriented x3 Extrem General: No pedal edema Psych Appearance: grossly normal Affect: normal affect Results AMB Urinalysis, Automated UA Leukoctes 0 [place]/uL Last Edit by EFRAIN Forrest on 09/14/24 11:24 UA Nitrite Last Edit by EFRAIN Forrest on 09/14/24 11:24 UA Urobilinogen 0.2 mg/dL Last Edit by EFRAIN Forrest on 09/14/24 11:24 UA Protein 0 mg/dL Last Edit by EFRAIN Forrest on 09/14/24 11:24 UA pH 6.0 Last Edit by EFRAIN Forrest on 09/14/24 11:24 UA Blood 10 [place]/uL Last Edit by EFRAIN Forrest on 09/14/24 11:24 UA Specific [place] 1.015 Last Edit by EFRAIN Forrest on 09/14/24 11:24 UA Ketone Negative Last Edit by EFRAIN Forrest on 09/14/24 11:24 UA Bilirubin 0 mg/dL Last Edit by EFRAIN Forrest on 09/14/24 11:24 UA Glucose 0 mg/dL Last Edit by EFRAIN Forrest on 09/14/24 11:24 Results Reviewed Results Reviewed: Laboratory Last Values Urine pH (Auto) 6.0 09/14/24 11: Specific [place] (Auto) 1.015 09/14/24 11:23 Urine Protein (Auto) 0 mg/dL 09/14/24 11:23 Glucose (UA)(Auto) 0 mg/dL 09/14/24 11:23 Urine Ketones (Auto) Negative 09/14/24 11:23 Urine Blood (Auto) 10 [place]/uL 09/14/24 11:23 Urine Bilirubin (Auto) 0 mg/dL 09/14/24 11:23 Urine Urobilinogen (Auto) 0.2 mg/dL 09/14/24 11:23 Leukocyte Esterase (Auto) 0 [place]/uL 09/14/24 11:23 Assessment & Plan Assessment & Plan (1) Anxiety about health: Code(s): R45.89 - Other symptoms and signs involving emotional state Category: Medical (2) Encounter for vasectomy counseling: Code(s): Z30.09 - Encounter for other general counseling and advice on contraception Category: Medical Plan Outpatient bilateral vasectomy Orders: Orders AMB Urinalysis Automated 09/14/24 Z13.9 - Encounter for screening, unspecified Patient Instructions: The patient had an opportunity to ask questions regarding treatment plan. The patient expressed understanding and agreement with the above treatment plan. The patient is aware they should contact our office by phone for worsening of their current condition or the appearance of new symptoms. Compliance is encouraged with any medications and followup testing that is ordered. It is a privilege to be allowed the opportunity to participate in the urologic care of your patient. If you have any questions or concerns regarding treatment for the above conditions please do not hesitate to contact me. The office telephone contact is [phone]. This note is constructed in part using voice recognition software. While every effort has been made to ensure accuracy paint stockman errors may have been included. Yours sincerely, Paula Pugh MD Coding Level of Care Code New Pt Level 4 (00109) Diagnoses Anxiety about health R45.89 Encounter for vasectomy counseling Z30.09
== END 2024-09-14 11:47 | disposition home or self-care (01) ==
PROVIDERS: PCP Internal Medicine; Visit Provider Urology
DX: R45.89 Other symptoms and signs involving emotional state (principal); Z30.09 Encounter for other general counseling and advice on contraception
CPT/HCPCS: 99204

== ENCOUNTER → 2024-09-14 10:45 | Outpatient (BNVA) | payer OTHER, SELFPAY | PROVIDERS: PCP Internal Medicine; Visit Provider Urology | DX: R45.89 Other symptoms and signs involving emotional state (principal); Z30.09 Encounter for other general counseling and advice on contraception | CPT/HCPCS: 81003; 99202 ==

== ENCOUNTER 2025-02-03 10:12 | Emergency (ER) | payer OTHER, SELFPAY ==
--- NOTE | ~2025-02-03 | XR_ITS ---
EXAMINATION: XR ANKLE 2 VIEWS RIGHT, XR FOOT 3 OR MORE VIEWS RIGHT HISTORY: pain COMPARISON: There are no prior studies available for comparison. FINDINGS: Six views of the right foot and ankle are submitted. Osseous mineralization is normal. The patient is status post internal fixation of the distal fibula with a sideplate and multiple orthopedic screws. No fracture line is seen. A tiny osseous density adjacent to the tip of the medial malleolus could represent a tiny fracture fragment, of indeterminate age. The bones are otherwise intact. There is mild narrowing of the MTP joint of the great toe. The soft tissues are unremarkable. XR/XR ankle RT 2V IMPRESSION: Possible tiny fracture fragment adjacent to the tip of the medial malleolus, of indeterminate age. Clinical correlation is recommended. Electronically signed by: Evelio Shane MD 02/03/2025 10:55 AM EDT
--- NOTE | ~2025-02-03 | XR_ITS ---
EXAMINATION: XR ANKLE 2 VIEWS RIGHT, XR FOOT 3 OR MORE VIEWS RIGHT HISTORY: pain COMPARISON: There are no prior studies available for comparison. FINDINGS: Six views of the right foot and ankle are submitted. Osseous mineralization is normal. The patient is status post internal fixation of the distal fibula with a sideplate and multiple orthopedic screws. No fracture line is seen. A tiny osseous density adjacent to the tip of the medial malleolus could represent a tiny fracture fragment, of indeterminate age. The bones are otherwise intact. There is mild narrowing of the MTP joint of the great toe. The soft tissues are unremarkable. XR/XR foot RT min 3V IMPRESSION: Possible tiny fracture fragment adjacent to the tip of the medial malleolus, of indeterminate age. Clinical correlation is recommended. Electronically signed by: Evelio Shane MD 02/03/2025 10:55 AM EDT
[2025-02-03 10:21] VITALS: BP 136/87; PULSE 92; RESP 20; TEMP 36.6; O2SAT 95; BMI 39.6
[2025-02-03 12:19] VITALS: PULSE 110; RESP 19; TEMP 36.6
--- NOTE | 2025-02-03 12:19 | ED_ITS ---
HPI - Extremity Problem General Chief complaint: Extremity Injury, Lower Stated complaint: R Foot Pain- Swelling Time Seen by Provider: 02/03/25 12:19 Source: patient, family and old records reviewed Mode of arrival: ambulatory Limitations: no limitations History of Present Illness ED Provider: NILE HERNANDEZ Narrative: 44 yo male with PMH of autism, PTSD, HTN, obesity here with c/o R foot pain and swelling after walking more has had prior surgery. He notes he is trying to get in his steps and now has pain no discrete trauma reported. Hurts to walk 02/11. MD Complaint: joint swelling and joint pain Onset (ago): day(s) (few) Pain Consistency: intermittent Location: right and lower extremity Quality: aching Radiation: none Relieving factors: immobilization Exacerbating factors: weight bearing and walking Associated symptoms: denies other symptoms Context: other Related Data Home Medications ?Medication ?Instructions ?Recorded ?Confirmed ibuprofen 800 mg tablet 800 mg PO Q8H PRN Pain 01/22/23 08/20/23 Previous Rx's ?Medication ?Instructions ?Recorded acetaminophen 500 mg tablet 1,000 mg (2 x 500 mg) PO Q8H PRN 08/28/23 mild-moderate pain #42 tabs docusate sodium 100 mg capsule 100 mg PO BID PRN constipation #20 08/28/23 caps oxycodone 5 mg tablet 5 mg PO Q6H PRN severe pain (scale 08/28/23 score 7-10) #24 tabs cyclobenzaprine 10 mg tablet 10 mg PO TID PRN muscle spasm #20 02/03/25 tabs Allergies Allergy/AdvReac Type Severity Reaction Status Date / Time No Known Allergies Allergy Verified 02/03/25 10:23 [No Known Allergies*] Review of Systems Review of Systems: Constitutional : No Fever, No Chills ENT/Mouth : No Ear Pain, No Hoarseness, No sore throat Eyes: No Eye Pain, No Swelling, No Redness, No Foreign Body Cardiovascular : No Chest Pain, No SOB Respiratory : No Cough, No Dyspnea Gastrointestinal : No Nausea, No Vomiting, No Diarrhea, No abdominal Pain Genitourinary : No Dysuria, No Hematuria Musculoskeletal : positive joint pain, No Myalgias, pos Joint Swelling Skin : No Skin lacerations, No rash Neuro : No Weakness, No Numbness, No Loss of Consciousness, No Dizziness, No Headache All other systems reviewed and are negative [facility] Past Medical History Attestation statement: The following information was validated with the patient. Source: old records reviewed Medical History DVT (deep venous thrombosis) Renal calculi Autism Low back pain Lumbar scoliosis HTN (hypertension) PTSD (post-traumatic stress disorder) Surgical History Hx of lithotripsy Hx of removal of cyst History of ankle surgery Hx of wisdom tooth extraction Family History Family History Mother No problems noted. Father Heart disease Social History Social History Household Members: Spouse Housing: House Are you a primary critical care unit manager to a significant other at home: No Do you presently have visiting nurse or other home services: No Alcohol intake: current Alcohol intake frequency: holidays/special occasions only Patient Tobacco Use Status: Former Tobacco user Tobacco use type: Cigarette Substance Use Type: Marijuana Advance Directives: No Advance Directives Information Provided: Yes Do you have a plan to hurt others: No Plan Physical Exam Vital Signs: Vital Signs: Last Vital Signs Temp 98 F 02/03/25 12:46 Pulse 110 H 02/03/25 12:46 Resp 19 02/03/25 12:46 BP 138/82 02/03/25 12:46 Pulse Ox 98 02/03/25 12:46 O2 Del Method Room Air 02/03/25 12:46 BMI result Body Mass Index 39.6 Appearance: Alert. Oriented X3. No acute distress. Eyes: Pupils equal, round and reactive to light. ENT: Pharynx normal. Neck: Normal inspection. CVS: Pulses normal. Respiratory: No respiratory distress. Abdomen: atraumatic Skin: Skin warm and dry. Normal skin color. Normal skin turgor. Extremities: No lower extremity edema. R foot lateral aspect mild swelling over lateral dorsum of foot - distal NV intact Neuro: Oriented X 3. No motor deficit. No sensory deficit. CN2-12 intact Medical Decision Making Medical Decision Making MDM Narrative: 44 yo male with PMH of autism, PTSD, HTN, obesity here with c/o R foot pain and swelling - no signs of infection, pain does not correlate with xray avulsion. At this time given swelling and new exercise suspect strain no concern for DVT or achilles tendinopathy. Walking boot and ortho could be stress fracture. Differential Diagnosis Differential Diagnoses: The differential diagnosis associated with the presentation includes sprain, strain, fracture, stress fracture Independent Interpretation I performed an independent interpretation of an: Plain X-Ray (?medial avulsion but clinically does not match up) Radiology Impression Discussion of test interpretation with radiology: I have reviewed the radiologist's reading. Independent Historian Clinical information obtained from an independent historian. History obtained from or confirmed by: Spouse External Record Review External record reviewed: Outpatient record Prescription Management I considered prescription management with: Other Discharge Plan Discharge Clinical Impression: Right foot strain Qualifiers: Encounter type: initial encounter Qualified Code(s): S96.911A - Strain of unspecified muscle and tendon at ankle and foot level, right foot, initial encounter Patient Disposition: Home, Self-Care Instructions: Foot Sprain (ED), Walking Boot (ED) Additional Instructions: wear walking boot and follow up with orthopedics return for worsening pain, redness, swelling, or any other concerns motrin and tylenol for pain COMPARISON: There are no prior studies available for comparison. FINDINGS: Six views of the right foot and ankle are submitted. Osseous mineralization is normal. The patient is status post internal fixation of the distal fibula with a sideplate and multiple orthopedic screws. No fracture line is seen. A tiny osseous density adjacent to the tip of the medial malleolus could represent a tiny fracture fragment, of indeterminate age. The bones are otherwise intact. There is mild narrowing of the MTP joint of the great toe. The soft tissues are unremarkable. XR/XR foot RT min 3V IMPRESSION: Possible tiny fracture fragment adjacent to the tip of the medial malleolus, of indeterminate age. Clinical correlation is recommended. Electronically signed by: Evelio Shane MD 02/03/2025 10:55 AM EDT Prescriptions: New cyclobenzaprine 10 mg tablet 10 mg PO TID PRN (Reason: muscle spasm) Qty: 20 0RF No Action acetaminophen 500 mg tablet 1,000 mg PO Q8H PRN (Reason: mild-moderate pain ) Qty: 42 1RF oxycodone 5 mg tablet 5 mg PO Q6H PRN (Reason: severe pain (scale score 7-10)) Qty: 24 0RF Rx Instructions: Partial Fill upon patient request. docusate sodium 100 mg capsule 100 mg PO BID PRN (Reason: constipation) Qty: 20 0RF ibuprofen 800 mg tablet 800 mg PO Q8H PRN (Reason: Pain) Referrals: [facility] [Provider Group] (call to schedule appointment) Interventions: ED Discharge Assessment Last Done: 02/03/25 12:46 Discharge Date/Time: 02/03/25 12:47 Print Language: Indonesian
[2025-02-03 12:46] VITALS: BP 138/82; PULSE 110; RESP 19; TEMP 36.6; O2SAT 98
--- OUTSIDE RECORDS SUMMARY | 2025-02-03 15:05 | XMS_ITS | Clinical Summary ---
Author Organization [facility], Address [address] [place] [address] Phone Care Team Providers Care Gristmiller Name Role Phone Marciano Flannery MD Primary Care Provider [phone] Allergies No known active allergies Medications ibuprofen (ADVIL,MOTRIN) 600 MG tablet Take 600 mg by mouth 1 (one) time each day Active Active Problems Problem Noted Date Diagnosed Date Scoliosis 08/01/2023 Low back pain 08/01/2023 Ankle pain 08/11/2019 08/01/2023 Social History Tobacco Use Types Packs/Day Years Used Date Smoking Tobacco: Never Assessed Sex and Gender Information Value Date Recorded Sex Assigned at Not on file Legal Sex Male 7:54 AM EDT Gender Identity Not on file Sexual Orientation Not on file Last Filed Vital Signs Vital Sign Reading Time Taken Comments Blood Pressure 120/82 08/13/2023 10:24 AM EDT Pulse 80 08/13/2023 10:24 AM EDT Temperature 36.2 ??C (97.2 ??F) 08/13/2023 10:24 AM E DT Respiratory Rate - - Oxygen Saturation 98% 08/13/2023 10:24 AM EDT Inhaled Oxygen Concentration - - Weight - - Height - - Body Mass Index - - Plan of Treatment Health Maintenance Due Date Last Done Comments Hepatitis B Vaccine (1 of 3 - 19+ 3-dose series) 2000 Influenza Vaccine (Season Ended) 2025 Pneumococcal Vaccine: Pediat rics (0 to 5 Years) and At-Risk Patients (6 to 64 Years) Aged Out No longer [facility] based on patient's [facility] to complete this topic Insurance [facility] MEDICAID Care Teams Gristmiller Relationship Specialty Start Date End Date Marciano Flannery MD [address] [place] [address] [id number] [place], [place] PCP - General Internal Medicine 08/01/23
--- OUTSIDE RECORDS SUMMARY | 2025-02-03 15:05 | XMS_ITS | Continuity of Care Document ---
Author Organization [facility] Address [address] [place] [address] Phone Care Team Providers Care Thermal Spray Operator Name Role Phone Chacho Louie DO Unavailable [...] Providers Copied on Encounter OV Est Detailed [address], [id number], tel:[phone] [facility] No Information 9-201 0 Cola Chacho. [address] [place] [address], [id number]. tel:[phone] OV Est Expanded [address], [id number], tel:[phone] [facility] No Information 8 0 Cola Chacho. [address] [place] [address], [id number]. tel:[phone] OV Est Expanded [address], [id number], tel:[phone] [facility] No Information 1 0 No Information OV Est Expanded [address], [id number], tel:[phone] [facility] No Information 0 No Information OV Est Expanded [facility], [address] [place] [address], [id number], tel:[phone] [facility] No Information 2 0 No Information OV Est. Brief (No Doctor) [facility], [address] [place] [address], [id number], tel:[phone] [facility] No Information 0 No Information OV New Comprehensive [facility], [address] [place] [address], [id number], tel:[phone] [facility] No Information 0 No Information Family History Family Member Type Diagnosis Age At Onset No Information Payers Payer name Insurance type Covered republican ID Authorkeria ephraim(s) MEDICAID [place] [id number] Social History Type Description Quantity Date Captured [...]
== END 2025-02-03 12:47 | disposition home or self-care (01) ==
PROVIDERS: Emergency Provider Emergency Medicine; PCP Internal Medicine
DX: R60.0 Localized edema (principal); S96.911A Strain of unspecified muscle and tendon at ankle and foot level, right foot, initial encounter; M25.571 Pain in right ankle and joints of right foot; X58.XXXA Exposure to other specified factors, initial encounter; Y93.9 Activity, unspecified; Y92.9 Unspecified place or not applicable; Y99.8 Other external cause status; Z87.891 Personal history of nicotine dependence; Z79.899 Other long term (current) drug therapy
CPT/HCPCS: 73600; 73630; 99283

== ENCOUNTER → 2025-02-03 10:35 | Outpatient (BNV) | payer OTHER, SELFPAY | PROVIDERS: PCP Internal Medicine; Visit Provider Radiology Diagnostic Radiology | DX: M79.671 Pain in right foot (principal) | CPT/HCPCS: 73600; 73630 ==

== ENCOUNTER 2025-03-30 08:01 | Day surgery (SDC) | payer OTHER, SELFPAY ==
--- OUTSIDE RECORDS SUMMARY | 2025-03-02 12:26 | XMS_ITS | Clinical Summary ---
Author Organization [facility], Address [address] [place] [address] Phone Care Team Providers Care Manager Park Name Role Phone Marciano Flannery MD Primary Care Provider [phone] Allergies No known active allergies Medications ibuprofen [...] Influenza Vaccine (Season Ended) 2025 Pneumococcal Vaccine: Peds ( 0 to 5 Years) and At-Risk Patients (6 to 49 Years) Aged Out No longer eligible b ased on patient's age to complete this topic Insurance [facility] Medicaid Care Teams Manager Park Relationship Specialty Start Date End Date Marciano Flannery MD [address] [place] [address] [address] [place], [place] PCP - General Internal Medicine 08/01/23
[2025-03-30] VITALS (7 sets, daily range): BP systolic 106–146; BP diastolic 42–100; PULSE 64–78; RESP 16; TEMP 35.9–36.3; O2SAT 96–100; BMI 39.2
[2025-03-30] MEDS: Lactated Ringers 1,000 ML 50 ML IVCONT (08:28)
--- NOTE | 2025-03-30 09:38 | HO.ANESPROP2 ---
HPI - Anesthesia Eval Consult details Narrative: for vasectomy PMFSH Active Problems Active Problems: All Active Problems Encounter for vasectomy counseling (Acute) Anxiety about health (Acute) S/P spinal fusion (Acute) Preoperative cardiovascular examination (Acute) Lumbar scoliosis (Acute) Abnormal ECG (Acute) Obesity (BMI 30-39.9) (Acute) Low back pain (Acute) Autism (Acute) PTSD (post-traumatic stress disorder) (Acute) HTN (hypertension) (Acute) Morbid obesity (Acute) Past Medical History Medical History (Updated 02/04/25 @ 00:00 by Gracie Guerrero) DVT (deep venous thrombosis) Renal calculi Autism Low back pain Lumbar scoliosis HTN (hypertension) PTSD (post-traumatic stress disorder) Family History Family History Mother No problems noted. Father Heart disease Family history of problems with anesthesia: No Surgical History Surgical History (Updated 03/26/25 @ 10:21 by Mona Gomez RN) Hx of spinal surgery Hx of lithotripsy Hx of removal of cyst History of ankle surgery Hx of wisdom tooth extraction History of Problems with Anesthesia: No (hyper sensory with Autism) Social History Social History Household Members: Spouse Housing: House Are you a primary home care and home health aides teacher to a significant other at home: No Do you presently have visiting nurse or other home services: No Alcohol intake: current Alcohol intake frequency: holidays/special occasions only Patient Tobacco Use Status: Former Tobacco user Tobacco use type: Cigarette Use of substances other than those prescribed or required for medical reasons: Yes Substance Use Type: Marijuana Are you DNR?: No Advance Directives: No Advance Directives Information Provided: Yes Poor oral hygiene: No Meds Allergies Allergy/AdvReac Type Severity Reaction Status Date / Time No Known Allergies Allergy Verified 02/03/25 10:23 [No Known Allergies*] Active Medications: Current Medications Lactated Ringer's (Lr) 1,000 mls @ 50 mls/hr IVCONT .Q20H MARIELLA Last Admin: 03/30/25 08:28 Dose: 50 mls/hr Home Medications ?Medication ?Instructions ?Recorded ?Confirmed ?Last Taken ?Type ibuprofen 800 mg tablet 800 mg PO Q8H PRN Pain 03/21/23 10/17/23 Unknown History Exam Height,Weight and Vital Signs: Height 5 ft 10 in Weight 123.9 kg Last Vital Signs Temp 96.7 F L 03/30/25 08:17 Pulse 76 03/30/25 08:17 Resp 16 03/30/25 08:17 BP 146/100 H 03/30/25 08:17 Pulse Ox 96 03/30/25 08:17 O2 Del Method Room Air 03/30/25 08:17 Airway Mallampati Class: II TM Dist: >3cm Neck ROM: Full Loose/Missing/Broken Teeth: No Heart: ok Lungs: ok Assessment and Plan Assessment Anesthesia Assessment: Anesthesia Plan Discussed and Chart Reviewed Final Anesthetic Review Family History of Problems with Anesthesia: No History of Problems with Anesthesia: No (hyper sensory with Autism) NPO: Yes ASA Class: III Final Preanesthetic Review: No Changes in Pt Med Stat, Meds/Allgs Chart Reviewed, Consent Obtained/Reviewed and Anes Risks/Benef Reviewed Patient Risk: Intermediate Procedure Risk: Low Anesthetic Plan Anesthetic Plan: GA and Agree w/ Assess. and Plan Disposition: Standard PACU
--- NOTE | 2025-03-30 09:39 | W.PM.OPN ---
Operative Note Operative Note Date of Service: 03/30/25 Narrative: Preoperative diagnosis: Anxiety regarding Postoperative diagnosis: Anxiety regarding unplanned Procedure: Bilateral vasectomy Surgeon: Dr. Paula Pugh Anesthesia: General Details of procedure:? The patient was brought into the operating room placed on the OR table in supine position.? 2 g of Ancef IV.? General anesthesia was administered.? The patient was prepped and draped in the usual sterile fashion. ? Time-out was done per protocol.? Both vasa were palpated through the skin using a 3 finger technique and at the penoscrotal junction. Starting on the right, the vas was elevated using a 3 finger grasping technique. Using the 15 blade knife an incision was made over the vas followed by a sharp spreading instrument the fascia was spread longitudinally in line with the vasa. The vasa was elevated from the scrotum using a ring clamp. Sharp and blunt dissection was used divide the vasal sheath and to strip the vasal sheath from the vasa. The vasal sheath was dissected from the vas in a proximal and distal fashion. This allowed the blood vessels of the vasa to retract from the vasa. The vasa was grasped with a forcep clamp on both sides and elevated from the incision. The vas was clamped on either side and a segment sent for path. 3.0 vicryl was used to apply a suture tie to the vasa and the needle tip cautery was used to cauterize the proximal and caudal end of the vas. Using 4 -0 chromic, the fascia was used to over lay and bury each end of the vas. The similar procedure was repeated on the left side. Both skin incisions were closed with 4-0 chromic. Bacitracin ointment and gauze was applied. The patient tolerated the procedure well. He was brought out of anesthesia. He understands the need to continue to use control methods. A semen sample should be brought for inspection under the microscope in 12 weeks. Drains: none Complications: none
--- NOTE | 2025-03-30 09:45 | MHC.SHP ---
Pre-Procedural Eval Section A - 24 Hr Update-Section A only Date of Service: 03/30/25 The patient is an INPATIENT: No The patient has been examined within 24 hours of the surgical procedure. The History & Physical has been completed within 30 days and I have reviewed it.: Yes Section B - Complete if H&P > 30 days Chief Complaint: Encounter for sterilization Allergies: Allergies Allergy/AdvReac Type Severity Reaction Status Date / Time No Known Allergies Allergy Verified 02/03/25 10:23 [No Known Allergies*] Plan Diagnosis/Plan: Unchanged I have reviewed the history and physical and performed a pertinent physical examination on my patient. No changes have occurred unless specified. Bilateral vasectomy procedure was discussed at length with the patient. Discussed risks which include but are not limited to hematoma, infection, procedure failure which is rare, sperm granuloma which may cause mild pain. Congestion which may cause sense of pressure and generally resolves after several weeks. Also discussed is the reported post vasectomy pain syndrome with chronic testicular pain which is uncommon <3%. The patient was advised that it is necessary to use other types of control methods for > 12 weeks and until we send semen for analysis to make sure there is no more sperm in the semen. Time Spent With Patient Time: Total time managing care of this patient today ____ minutes.
[2025-03-30] MEDS: ceFAZolin Sodium/Dextrose,Iso 2 GM/50 ML PIGGYBACK IV (09:52)
== END 2025-03-30 13:04 | disposition home or self-care (01) ==
PROVIDERS: PCP Internal Medicine; Visit Provider Urology
PROC: (CPT 55250; principal; 2025-03-30 09:40)
DX: Z30.2 Encounter for sterilization (principal); R45.89 Other symptoms and signs involving emotional state; F41.9 Anxiety disorder, unspecified; I10 Essential (primary) hypertension; F84.0 Autistic disorder; M41.86 Other forms of scoliosis, lumbar region; Z87.442 Personal history of urinary calculi; Z86.718 Personal history of other venous thrombosis and embolism; Z98.890 Other specified postprocedural states; Z87.891 Personal history of nicotine dependence
CPT/HCPCS: 55250; 88302; J0690; J2003; J2704; J2795; J3010

== ENCOUNTER → 2025-03-30 08:01 | Outpatient (BNV) | payer OTHER, SELFPAY | PROVIDERS: PCP Internal Medicine; Visit Provider Urology | DX: Z30.2 Encounter for sterilization (principal) | CPT/HCPCS: 55250 ==

== ENCOUNTER 2025-06-07 14:29 | Outpatient (AMB) | payer OTHER, SELFPAY ==
--- NOTE | 2025-06-07 14:29 | A.OFFPC_ITS ---
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 Medical History (Updated 02/04/25 @ 00:00 by Gracie Guerrero) DVT (deep venous thrombosis) Renal calculi Autism Low back pain Lumbar scoliosis HTN (hypertension) PTSD (post-traumatic stress disorder) Surgical History (Updated 03/26/25 @ 10:21 by Mona Gomez RN) Hx of spinal surgery Hx of lithotripsy Hx of removal of cyst History of ankle surgery Hx of wisdom tooth extraction Family History Mother No problems noted. Father Heart disease Social History Household Members: Spouse Housing: House Are you a primary career development engineer to a significant other at home: No Do you presently have visiting nurse or other home services: No Alcohol intake: current Alcohol intake frequency: holidays/special occasions only Patient Tobacco Use Status: Former Tobacco user Tobacco use type: Cigarette e-Cigarette/Vaping Use: Never Used Substance Use Type: Marijuana Questionnaire AUDIT C Alcohol Use Questionnaire (AUDIT-C) 1. How often do you have a drink containing alcohol?: Monthly or less 2. How many drinks containing alcohol do you have on a typical day when you are drinking?: 1 or 2 Total Score: 1 Physical exam (Primary Care) Vital Signs: Last Vital Signs Temp 97.6 F 06/07/25 14:34 Pulse 85 06/07/25 14:34 Resp 16 06/07/25 14:34 BP 118/75 06/07/25 14:38 Pulse Ox 98 06/07/25 14:34 Oxygen Delivery Method Room Air 06/07/25 14:34 BMI result Body Mass Index 36.6 Tobacco/Smoking Status: Tobacco use Status Tobacco use date assessed 06/07/25 06/07/25 14:30 Patient Tobacco Use Status Former Tobacco user 06/07/25 14:30 Tobacco use type Cigarette 06/07/25 14:30 e-Cigarette/Vaping Use Never Used 06/07/25 14:39 Coding Level of Care Code New Pt Level 4 (41537) Complex EM visit Add On G2211 Diagnoses HTN (hypertension) I10 Morbid obesity E66.01 Abscess of thigh L02.419 Assessment & Plan Assessment & Plan (1) HTN (hypertension): Code(s): I10 - Essential (primary) hypertension Category: Medical Plan: Blood work ordered. Continue meds (2) Morbid obesity: Code(s): E66.01 - Morbid (severe) obesity due to excess calories Category: Medical Plan: Condition noted (3) Abscess of thigh: Code(s): L02.419 - Cutaneous abscess of limb, unspecified Plan: Abx added to the regimen. NSAIDS added and a surgical consult placed. Plan History of Present Illness - The patient is a 45-year-old male presenting with a cyst on the inner thigh. - The cyst has been present for approximately two weeks and is described as painful. - The patient has a history of pilonidal cyst removal at age 22 and reports a tendency to develop cysts. - He manages cysts at home with a personal kit and denies having diabetes or high blood sugar levels. - The patient works at a [employer], with a 40-hour work week, and works from home three days a week. Social History - Employment: Works at a [employer], 40-hour work week, three days from home. Review of Systems - Integumentary: Reports painful cyst on inner thigh for two weeks. - Endocrine: Denies diabetes or high blood sugar levels. Physical Exam General: Cooperative and healthy appearing Nutritional Appearance: Well nourished Orientation/consciousness: Patient oriented x3 Limitations: No limitations Head: Normal to inspection General: Appearance normal, both eyes and all related structures Neck: Normal visual inspection Chest: Normal palpation of entire chest wall Respiratory: Normal respiratory effort Neurology: Patient oriented x3 Results Plan 1. Cyst On Inner Thigh - Initiate antibiotic therapy to manage infection risk. - Referral to a surgeon for evaluation and potential removal of the cyst. Discussion Notes I discussed with the patient the plan to start antibiotics to manage the cyst and the need for a surgical consultation for potential removal. We agreed on this approach, and I will arrange for the surgical appointment. Patient Instructions - Start the prescribed antibiotics as directed. - Attend the surgical consultation appointment when scheduled. Orders: Orders Complete Blood Count no Diff Today E66.01 - Morbid (severe) obesity due to excess calories, I10 - Essential (primary) hypertension, L03.116 - Cellulitis of left lower limb Basic Metabolic Panel Today E66.01 - Morbid (severe) obesity due to excess calories, I10 - Essential (primary) hypertension, L03.116 - Cellulitis of left lower limb Lipid Panel Today E66.01 - Morbid (severe) obesity due to excess calories, I10 - Essential (primary) hypertension, L03.116 - Cellulitis of left lower limb Liver Panel Today E66.01 - Morbid (severe) obesity due to excess calories, I10 - Essential (primary) hypertension, L03.116 - Cellulitis of left lower limb Thyroid Stimulating Hormone Today E66.01 - Morbid (severe) obesity due to excess calories, I10 - Essential (primary) hypertension, L03.116 - Cellulitis of left lower limb UA and rflx microscopic Today E66.01 - Morbid (severe) obesity due to excess calories, I10 - Essential (primary) hypertension, L03.116 - Cellulitis of left lower limb Referrals General Surgery Referral L02.419 - Cutaneous abscess of limb, unspecified Medications: New ibuprofen 800 mg PO Q8H PRN 21 tabs 0RF Pain cephalexin 500 mg PO BID 14 caps 0RF
--- OUTSIDE RECORDS SUMMARY | 2025-06-07 14:31 | XMS_ITS | Clinical Summary ---
Author Organization [facility], Address [address] [place] [address] Phone Care Team Providers Care Tool Shaper Set Up Operator Name Role Phone Marciano Flannery MD Primary Care Provider [phone] Allergies No known active allergies Medications ibuprofen [...] 80 08/13/2023 10:24 AM EDT Temperature 36.2 C (97.2 F) 08/13/2023 10:24 AM EDT Respiratory Rate - - Oxygen Saturation 98% 08/13/2023 10:24 AM EDT Inhaled Oxygen Concentration - - Weight - - Height - - Body Mass Index - - Plan of Treatment Health Maintenance Due Date Last Done Comments Hepatitis B Vaccine (1 of 3 - 19+ 3-dose series) 2000 Influenza Vaccine (#1) 2025 Pneumococcal Vaccine: Peds ( 0 to 5 Years) and At-Risk Patients (6 to 49 Years) Aged Out No longer eligible b ased on patient's age to complete this topic Insurance [facility] Medicaid Care Teams Tool Shaper Set Up Operator Relationship Specialty Start Date End Date Marciano Flannery MD [address] [place] [address] [address] [place], [place] PCP - General Internal Medicine 08/01/23
--- OUTSIDE RECORDS SUMMARY | 2025-06-07 14:31 | XMS_ITS | Encounter Summary ---
Author Organization [facility] Address [address] [place] [address] Phone Care Team Providers Care Event Promoter Name Role Phone Marciano Flannery MD Primary Care Provider Encounter Details Date Type Department Care Team (Late st Contact Info) Description 07/02/2019 Procedure Pass OR Admitting Dept - Virtual Department [address] [place] [id number] Social History Tobacco Use Types Packs/Day Years Used Date Smoking Tobacco: Every Day Cigarettes Smokeless Tobacco: Never Alcohol Use Standard Drinks/Week Comments Not Currently 0 (1 standard drink = 0.6 oz pur e alcohol) Sex and Gender Information Value Date Recorded Sex Assigned at Male 07/02/2019 11:41 PM EDT Legal Sex Male 4:13 PM EDT Gender Identity Male 07/02/2019 11:41 PM EDT Sexual Orientation Bisexual 07/26/2019 2: 45 PM EDT documented as of this encounter Plan of Treatment Not on file documented as of this encounter Visit Diagnoses Not on filedocumented in this encounter Care Teams Event Promoter Relationship Specialty Start Date End Date Marciano Flannery MD [address] [place] [address] [place] [id number] PCP - General Internal Medicine 07/02/19 documented as of this encounter Additional Source Comments The information contained in this document represents components of the legal health record. It is not the complete legal health record.[facility]
[2025-06-07 14:34] VITALS: BP 92/48; PULSE 85; RESP 16; TEMP 36.4; O2SAT 98; BMI 36.6
[2025-06-07 14:38] VITALS: BP 118/75
== END 2025-06-07 16:05 | disposition home or self-care (01) ==
LOC: HO.HMCHD 14:29
PROVIDERS: PCP Internal Medicine; Visit Provider Internal Medicine
DX: I10 Essential (primary) hypertension (principal); E66.01 Morbid (severe) obesity due to excess calories; L02.419 Cutaneous abscess of limb, unspecified

== ENCOUNTER 2025-06-09 06:25 | Outpatient (REF) | payer OTHER, SELFPAY ==
--- OUTSIDE RECORDS SUMMARY | 2010-10-12 06:45 | XMS_ITS | Continuity of Care Document ---
Author Organization [facility] unt Address [address] [place] [address] Phone Care Team Providers Care Soil Biology Teacher Name Role Phone Chacho Louie DO Unavailable Unavailable Procedures Procedure Date OV Est Detailed OV Est Expanded VENIPUNCTURE OV Est Expanded OV Est Expanded OV Est Expanded OV Est. Brief (No Doctor) VENIPUNCTURE OV New Comprehensive Advance Directives Directive Yes / No Effective Date File Name No Information Encounters Encounter Description Practice Location Reason(s) For Visit Diagnoses Date Provider Providers Copied on Encounter OV Est Detailed [address], [id number], tel:[phone] [facility] No Information [phone] 0 Cola Chacho. [address] [place] [address], [id number]. tel:[phone] OV Est Expanded [address], [id number], tel:[phone] [facility] No Information 8 0 Cola Chacho. [address] [place] [address], [id number]. tel:[phone] OV Est Expanded [address], [id number], tel:[phone] [facility] No Information 1 0 No Information OV Est Expanded [address], [id number], tel:[phone] [facility] No Information 0 No Information OV Est Expanded [facility], [address] [place] [address], [id number], tel:[phone] [facility] No Information 2 0 No Information OV Est. Brief (No Doctor) [facility], [address] [place] [address], [id number], tel:[phone] [facility] No Information 0 No Information OV New Comprehensive [facility], [address] [place] [address], [id number], tel:[phone] [facility] No Information 0 No Information Family History Family Member Type Diagnosis Age At Onset No Information Payers Payer name Insurance type Covered libertarian ID Authorkeria ephraim(s) MEDICAID [place] [id number] Social History Type Description Quantity Date Captured Comments Sex Male Smoking Status No Information Chief Complaint And Reason For Visit No Information Reason For Referral Reason For Referral No Information History Of Present Illness Encounter Date Complaint History Of Prese nt Illness No Information Functional Status Date Functional Assessmen t No Information Instructions Date Instruction Additional Infor mation No Information Assessments Type Assessment Date No Information Patient Care Teams Name Effective Dates (start - stop) Status Members No Information
--- OUTSIDE RECORDS SUMMARY | 2025-06-09 06:28 | XMS_ITS | Encounter Summary ---
Author Organization [facility] Address [address] [place] [address] Phone Care Team Providers Care Securities Counselor Name Role Phone Marciano Flannery MD Primary Care Provider Encounter Details Date Type Department Care Team (Late st Contact Info) Description 07/02/2019 Procedure Pass OR Admitting Dept - Virtual Department [address] [place] [id number] Social History Tobacco Use Types Packs/Day Years [...] on filedocumented in this encounter Care Teams Securities Counselor Relationship Specialty Start Date End Date Marciano Flannery MD [address] [place] [address] [place] [id number] PCP - General Internal Medicine 07/02/19 documented as of this encounter Additional Source Comments The information contained in this document represents components of the legal health record. It is not the complete legal health record.[facility]
[2025-06-09 07:35] LABS: Hematocrit 47.7 % (42.0-52.0); Hemoglobin 16.4 g/dl (14.0-18.0); Mean Corpuscular HGB Conc 34.4 g/dl (31.0-36.0); Mean Corpuscular Hemoglobin 29.8 pg (27.0-33.0); Mean Corpuscular Volume 86.6 fL (80.0-98.0); NRBC Abs Auto 0.000 X10*3/uL (0.0-0.012); NRBC Pct Auto 0.0 /100WBC (0.0-0.2); Platelet Count 191 X10*3/uL (160-400); Red Blood Count 5.51 X10*6/uL (4.60-5.80); White Blood Count 5.7 X10*3/uL (4.8-10.8)
[2025-06-09 08:18] LABS: Alanine Aminotransferase 42 U/L (0-40); Albumin Level 4.2 g/dL (3.5-5.0); Alkaline Phosphatase 74 U/L (39-117); Anion Gap 12 (12-20); Aspartate Amino Transferase 30 U/L (5-37); Blood Urea Nitrogen 12 mg/dL (9-16); Calcium 8.9 mg/dL (8.4-10.2); Carbon Dioxide 27 mmol/L (22-29); Chloride 108 mmol/L (96-108); Cholesterol 165 mg/dL (<200); Estimated Glomerular Filt Rate > 60; HDL Cholesterol 37 mg/dL (>40); Potassium 4.5 mmol/L (3.3-5.1); Sodium 142 mmol/L (135-145); Total Protein 7.6 g/dL (6.5-8.0); Triglycerides 76 mg/dL (<150)
[2025-06-09 08:34] LABS: Appearance Urine Clear; Glucose Urine UA Negative (Negative); PH 5.5 (5.0-9.0); Specific Gravity - Urine 1.025 (1.005-1.025)
[2025-06-09 08:36] LABS: Thyroid Stimulating Hormone 2.78 uIU/mL (0.32-4.0)
== END 2025-06-09 06:26 | disposition home or self-care (01) ==
LOC: HO.LAB 06:25
PROVIDERS: PCP Internal Medicine; Visit Provider Internal Medicine
DX: L03.116 Cellulitis of left lower limb (principal); I10 Essential (primary) hypertension; E66.01 Morbid (severe) obesity due to excess calories
CPT/HCPCS: 36415; 80048; 80061; 80076; 81003; 84443; 85027

== ENCOUNTER 2025-07-01 15:23 | Outpatient (AMB) | payer OTHER, SELFPAY ==
--- NOTE | 2025-07-01 15:48 | A.OFFVIS_ITS ---
Intake Visit Reasons: Vasectomy follow up Intake Note: Patient is present for VASECTOMY post-op Urology Medication:NONE blood Thinner:NONE Professional Fighter Required: No Accompanied by: Self / Same As Patient Allergies No Known Allergies (No Known Allergies*) Allergy (Verified 07/01/25 15:50) HPI Comments Details: Status post vasectomy. Patient states he developed a staph infection in his and in his PCP treated with antibiotics. Examination today scrotum incisions well healed no scrotal swelling. Patient given a specimen cup to bring a semen analysis semen sample to the office COUNT INCLUDES THE [facility] Medical History (Updated 02/04/25 @ 00:00 by Gracie Guerrero) DVT (deep venous thrombosis) Renal calculi Autism Low back pain Lumbar scoliosis HTN (hypertension) PTSD (post-traumatic stress disorder) Surgical History (Updated 03/26/25 @ 10:21 by Mona Gomez RN) Hx of spinal surgery Hx of lithotripsy Hx of removal of cyst History of ankle surgery Hx of wisdom tooth extraction Family History Mother No problems noted. Father Heart disease Social History Household Members: Spouse Housing: House Are you a primary childcare worker to a significant other at home: No Do you presently have visiting nurse or other home services: No Alcohol intake: current Alcohol intake frequency: holidays/special occasions only Patient Tobacco Use Status: Former Tobacco user Tobacco use type: Cigarette e-Cigarette/Vaping Use: Never Used Substance Use Type: Marijuana Results AMB Urinalysis, Automated UA Leukoctes 0 [place]/uL Last Edit by EFRAIN Skinner on 07/01/25 16:09 UA Nitrite Negative Last Edit by EFRAIN Skinner on 07/01/25 16:09 UA Urobilinogen 3.5 mg/dL Last Edit by EFRAIN Skinner on 07/01/25 16:0 9 UA Protein 0 mg/dL Last Edit by EFRAIN Skinner on 07/01/25 16:09 UA pH 6.0 Last Edit by EFRAIN Skinner on 07/01/25 16:09 UA Blood 0 Raudel/uL Last Edit by EFRAIN Skinner on 07/01/25 16:09 UA Specific [place] 1.015 Last Edit by EFRAIN Skinner on 07/01/25 16: 09 UA Ketone Negative Last Edit by EFRAIN Skinner on 07/01/25 16:09 UA Bilirubin 0 mg/dL Last Edit by EFRAIN Skinner on 07/01/25 16:09 UA Glucose 0 mg/dL Last Edit by EFRAIN Skinner on 07/01/25 16:09 Results Reviewed Results Reviewed: Laboratory Last Values Urine pH (Auto) 6.0 07/01/25 16:02 Specific [place] (Auto) 1.015 07/01/25 16:02 Urine Protein (Auto) 0 mg/dL 07/01/25 16:02 Glucose (UA)(Auto) 0 mg/dL 07/01/25 16:02 Urine Ketones (Auto) Negative 07/01/25 16:02 Urine Blood (Auto) 0 Raudel/uL 07/01/25 16:02 Urine Nitrite (Auto) Negative 07/01/25 16:02 Urine Bilirubin (Auto) 0 mg/dL 07/01/25 16:02 Urine Urobilinogen (Auto) 3.5 mg/dL 07/01/25 16:02 Leukocyte Esterase (Auto) 0 [place]/uL 07/01/25 16:02 Assessment & Plan Assessment & Plan Orders: Orders AMB Urinalysis Automated Today Z13.9 - Encounter for screening, unspecified Coding
--- OUTSIDE RECORDS SUMMARY | 2025-07-01 15:53 | XMS_ITS | Clinical Summary ---
Author Organization [facility], Address [address] [place] [address] Phone Care Team Providers Care Bmx Rider Name Role Phone Marciano Flannery MD Primary Care Provider [phone] Allergies No known active allergies Medications ibuprofen [...] patient's age to complete this topic Insurance [facility] Medicaid Care Teams Bmx Rider Relationship Specialty Start Date End Date Marciano Flannery MD [address] [place] [address] [address] [place], [place] PCP - General Internal Medicine 08/01/23
--- OUTSIDE RECORDS SUMMARY | 2025-07-01 15:53 | XMS_ITS | Encounter Summary ---
Author Organization [facility] Address [address] [place] [address] Phone Care Team Providers Care Laborer Hoisting Name Role Phone Marciano Flannery MD Primary Care Provider Encounter Details Date Type Department Care Team (Late st Contact Info) Description 07/02/2019 Procedure Pass OR Admitting Dept - Virtual Department [address] [place] [phone] Social History Tobacco Use Types Packs/Day Years [...] on filedocumented in this encounter Care Teams Laborer Hoisting Relationship Specialty Start Date End Date Marciano Flannery MD [address] [place] [address] [place] [id number] PCP - General Internal Medicine 07/02/19 documented as of this encounter Additional Source Comments The information contained in this document represents components of the legal health record. It is not the complete legal health record.[facility]
--- OUTSIDE RECORDS SUMMARY | 2025-07-01 15:53 | XMS_ITS | Clinical Summary ---
Author Organization [facility] Address [address] [place] [address] Phone Care Team Providers Care Risk Engineer Name Role Phone Marciano Flannery MD Primary Care Provider Allergies No known active allergies Medications acetaminophen (TYLENOL) 325 mg tablet Take 2 tablets (650 mg total) by mouth every 4 (four) hours as needed for mild pain. 07/02/2019 Active aspirin 325 MG tablet Take 1 tablet (325 mg total) by mouth daily. 07/02/2019 Active apixaban (ELIQUIS) 5 mg (74 tabs) tablets in DVT/PE starter pack Take by mouth as directed. Take 10mg by mouth twice daily for 7 days followed by 5mg twice daily. 74 tablet 07/26/2019 Active Active Problems Problem Noted Date Diagnosed Date Right ankle pain 08/11/2019 Social History Tobacco Use Types Packs/Day Years Used Date Smoking Tobacco: Every Day Cigarettes Smokeless Tobacco: Never Alcohol Use Standard Drinks/Week Comments Not Currently 0 (1 standard drink = 0.6 oz pur e alcohol) Education Answer Date Recorded Are you interested in more education? Not on edgardo e 03/01/2023 Are you concerned about learning? Not on file 03/01/2023 No 03/01/2023 No 03/01/2023 Digital Access Answer Date Recorded No 03/30/2023 No 03/30/2023 No 03/30/2023 Reliable internet access at home? Not on file 03/30/2023 Device with a working camera? Not on file Sex and Gender Information Value Date Recorded Sex Assigned at Male 07/02/2019 11:41 PM EDT Legal Sex Male 4:13 PM EDT Gender Identity Male 07/02/2019 11:41 PM EDT Sexual Orientation Bisexual 07/26/2019 2: 45 PM EDT Last Filed Vital Signs Vital Sign Reading Time Taken Comments Blood Pressure 130/92 07/26/2019 6:56 PM EDT Pulse 87 07/26/2019 6:56 PM EDT Temperature 36.5 C (97.7 F) 07/26/2019 6:56 PM EDT Respiratory Rate 18 07/26/2019 6:56 PM EDT Oxygen Saturation 96% 07/26/2019 6:56 PM EDT Inhaled Oxygen Concentration - - Weight 113.4 kg (250 lb) 07/26/2019 2:43 PM EDT Height 180.3 cm (5' 11 ) 07/26/2019 2:43 PM EDT Body Mass Index 34.87 07/26/2019 2:43 PM EDT Plan of Treatment Health Maintenance Due Date Last Done Comments CREATININE LEVEL 1981 LIPID PANEL 1981 DEPRESSION SCREENING 1993 SMOKING Hx and SMOKELESS TOBACCO SCREENING 1994 HEPATITIS C SCREENING 1999 HIV ONE-TIME SCREENING (18-6 5 YEARS) 1999 PNEUMOCOCCAL VACCINES (0-49 years) (1 of 2 - PCV) 2000 COVID-19 VACCINE (3 - 2023-2 5 season) 2024 03/22/2021, 02/22/2021 Adult Td,Tdap Booster 11/01/2025 11/01/2015 HEPATITIS A VACCINES Aged Out No long er eligible based on patient's age to complete this topic HIB VACCINES Aged Out No longer eligi ble based on patient's age to complete this topic MENINGOCOCCAL VACCINES (ACWY) Aged Out No longer eligible based on patient's age to complete this topic MENINGOCOCCAL VACCINES (B) Aged Out N o longer eligible based on patient's age to complete this topic Medical Devices Implanted Type Area Design Director Device Identifier Shelf Expiration Date Model / Serial / Lot Screw Bone 3.5x26mm Cortex Self Tapping Fully Threaded Hex Head Ss - [id number] Implanted:Qty: 2 on 07/02/2019 by Rahat Clifton DO at [facility] [employer] Right: Ankle SYNTHES 204.826 / / Screw Bone 3.5x14mm Cortex Self Tapping Fully Threaded Hex Head Ss - [id number] Implanted:Qty: 3 on 07/02/2019 by Rahat Clifton DO at [facility] Right: Ankle SYNTH[employer] 204.814 / / Screw Bone 3.5x22mm Cortex Self Tapping Fully Threaded Hex Head Ss - [id number] Implanted:Qty: 1 on 07/02/2019 by Rahat Clifton DO at [facility] Right: Ankle [employer] 204.822 / / [place] [employer] [employer] [id number] [place] [id number] [place] [employer] [phone] [place] [phone] Advance Directives For more information, please contact: [phone] (9AM - 5PM [facility], Saturday-Saturday) Documents on File Type Date 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 It is not the complete legal health record.[facility]
== END 2025-07-01 16:20 | disposition home or self-care (01) ==
LOC: HO.HUSH 15:23
PROVIDERS: PCP Internal Medicine; Visit Provider Urology
DX: Z13.9 Encounter for screening, unspecified (principal)

== ENCOUNTER → 2025-07-01 15:23 | Outpatient (BNVA) | payer OTHER, SELFPAY | PROVIDERS: PCP Internal Medicine; Visit Provider Urology | DX: Z98.52 Vasectomy status (principal) | CPT/HCPCS: 81003 ==